=== PATIENT | male | born 1935 | race Caucasian/White ===

== ENCOUNTER → 2017-10-14 | Outpatient (CLI) | payer OTHER ==
[~2017-10-14] MED LIST: ACCUPRIL40 MG; AMLODIPINE BESY10 MG PO; APAP650 PO; ASPIRIN325 PO; BACLOFEN 10MG T10 MG PO; BACTRIM DS TAB1 EAC1 PO; BACTROBAN CREAM30 G1 TOP; BISACODYL10 MG RC; CARVEDILOL25 MG PO; CLARITIN10 MG PO; COLACE 100 MG100 MG PO; CYMBALTA30 MG PO; ENOXAPARIN30 MG/0.1 SUBQ; FLOMAX0.4 MG PO; FOLIC ACID1 MG; FOLIC ACID1 MG PO; HYDROCHLOROTHIA25 M1 PO; HYDROCHLOROTHIA25 M2 PO; HYDROCODONE-APA1 TA1 PO; IRON325 PO; KEFLEX250 MG PO; LASIX 40 MG TAB40 M2 PO; LIDODERM 5%1 PATC1 TRANSDERM; LIORESAL 10 MG10 MG PO; LIPITOR10 MG PO; MOBIC15 MG PO; MULTIVITAMINS1 EAC7 PO; NEPHROCAPS SOFT1 CAP PO; NEURONTIN 300300 M1 PO; NORCO 5-325 TA1 EACH PO; OMEPRAZOLE 20 M20 M1 PO; OMEPRAZOLE20 M2; OMEPRAZOLE20 MG PO; PACERONE 200 M200 M1 PO; PREDNISONE 20 M20 MG PO; PREVACID30 MG PO; PRILOSEC20 MG PO; PROTONIX40 M1 PO; QUINU10 PD PO; SIMVASTATIN20 MG; SIMVASTATIN20 MG PO; SIMVASTATIN40 MG PO; TOPROL XL50 MG PO; TORSEMIDE100 MG PO; TRAMADOL 50 MG50 MG PO; TRIAMCINOLONE A15 G1 TP; TRIAMTERENE-HC1 EAC3; VICODIN 5-5001 EACH PO; VOLTAREN GEL 1100 G2 TOP; ZOCOR20 MG PO; [UNRECOGNIZED DRUG - CODE]
== END ==
LOC: RAD 09:00
DX: T84.51XA Infection and inflammatory reaction due to internal right hip prosthesis, initial encounter (principal); S72.141P Displaced intertrochanteric fracture of right femur, subsequent encounter for closed fracture with malunion; I50.9 Heart failure, unspecified; Z79.82 Long term (current) use of aspirin; Z79.899 Other long term (current) drug therapy; Z79.891 Long term (current) use of opiate analgesic; X58.XXXD Exposure to other specified factors, subsequent encounter; Y83.8 Other surgical procedures as the cause of abnormal reaction of the patient, or of later complication, without mention of misadventure at the time of the procedure

== ENCOUNTER 2017-11-04 05:23 | Inpatient (IN) | payer OTHER ==
[2017-10-22 11:22] LABS: HEMATOCRIT 32.2 % (42.0-52.0); HEMOGLOBIN 10.8 gm/dL (14.0-18.0); MCH 30.7 pg (26.0-34.0); MCHC 33.5 g/dL (28.0-37.0); MCV 91.6 fL (80.0-100.0); RBC 3.51 mil/uL (4.50-6.00); RDW 13.1 % (10.5-14.5); WBC 8.5 thou/uL (4.0-11.0)
[2017-10-22 11:31] LABS: URINE BILIRUBIN NEGATIVE (Negative); URINE BLOOD TRACE (Negative); URINE CLARITY CLEAR; URINE COLOR YELLOW; URINE GLUCOSE-RANDOM* NEGATIVE (Negative); URINE KETONES NEGATIVE (Negative); URINE LEUKOCYTES-REFLEX NEGATIVE (Negative); URINE NITRITE-REFLEX NEGATIVE (Negative); URINE PROTEIN (DIPSTICK) NEGATIVE (Negative); URINE SPECIFIC GRAVITY <= 1.005 (1.005-1.035); URINE UROBILINOGEN 0.2 E.U./dl (0.2-1.0)
[2017-10-22 11:38] LABS: PROTIME 10.4 Seconds (9.3-11.4)
[2017-10-22 11:43] LABS: ALBUMIN 3.6 g/dL (3.4-5.0); CALCIUM 8.7 mg/dL (8.5-10.1); CREATININE 2.7 mg/dL (0.7-1.3); TOTAL BILIRUBIN 0.5 mg/dL (<0.1-1.0); TOTAL PROTEIN 7.6 g/dL (6.4-8.2)
[~2017-11-04] VITALS: Ht 170.2 cm; Wt 74.8 kg
[2017-11-04] VITALS (8 sets, daily range): BP systolic 110–170; BP diastolic 20–74
--- NOTE | ~2017-11-04 | O ---
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 PROCEDURE: 1. Removal of right intertrochanteric hip nail. 2. Right total hip arthroplasty. SURGEON: Adalid Villanueva M.D. CABLE WORKER HELPER: LORI Yanes. INDICATIONS FOR CABLE WORKER HELPER: Throughout the case extensive retraction and manipulation of the hip as well as dislocation and reduction of the hip was required. This was afforded to me by my dietetic assistant. ANESTHESIA: General endotracheal. IMPLANTS: Rao and Nephew size 58 R3 acetabular cup, 3 acetabular screws, a size 14 high offset Synergy press-fit stem with a size 40+0 cobalt chrome head and 2 Accord cerclage cables. ESTIMATED BLOOD LOSS: 150 mL. COMPLICATIONS: None. SPECIMENS: Intraoperative frozen section as well as cultures were taken, and intraoperative frozen section revealed few chronic inflammatory cells with no neutrophils. CONDITION UPON LEAVING OR: Stable. INDICATION FOR PROCEDURE: The patient is an 82-year-old gentleman who about 3 years ago sustained a right intertrochanteric hip fracture. This was treated with a short IM nail. He has had progressive hip pain and screw cut out with nonunion of the intertrochanteric hip fracture. After discussion with he and [facility] [address] [place] [address] OPERATIVE REPORT Name: ZENA LAWS Maxine Room #: 409-P [facility] IN .R.#: [id number] Admission: 11/04/17 Attend Phys: Adalid Villanueva MD Discharge: Date of : 36 Report #: [id number] his family as well as workup for infection was negative, he elected for hardware removal and conversion to a total hip arthroplasty. DESCRIPTION OF PROCEDURE: Risks, benefits, alternatives, complications were discussed in detail with the patient including but not limited to risk of anesthesia, risk of damage to nerves, arteries, blood vessels, risk for infection, bleeding, risk for continued hip pain, leg length discrepancy, instability and need for reoperation. Informed consent was obtained from the patient. Right hip was appropriately marked in the preoperative holding area. IV Ancef was given for preoperative antibiotics. He was brought to the operating room and placed in the supine position on the operating room table. General endotracheal anesthesia was induced without complication. He was then placed in the left lateral decubitus position with the right hip uppermost. Right hip and lower extremity were then prepped and draped in normal sterile fashion. Timeout was performed properly identifying the patient, procedure as well as the instrumentation and implants. All in the operating room were in agreement. A standard posterior approach to the hip was made with a 10 blade through the skin and dissection was taken down the fascia with Bovie and fascia was cleaned off with Richards elevator. Fresh 10 blade was used to make a fascial incision. This was taken proximally and distally with curved King scissor. Charnley retractor was placed and there was extensive scarring on the posterior tissues and this was taken off the posterior aspect of the femur with a Bovie cautery. On entering the joint, there appeared to be normal joint fluid. Cultures of this were taken and synovium was removed for frozen section. After this, attention was turned to removal of the trochanteric nail. The vastus lateralis was split longitudinally with Bovie cautery and the distal screw was identified and removed with a screwdriver. The lag screw was then identified and a screwdriver was placed on this. The set screw was unlocked from above and then the lag screw was removed and the nail itself was removed. After this, the hip was dislocated and a femoral neck cut was made to remove the femoral head. Deep acetabular retractors were placed and the labrum was removed sharply. Pulvinar was removed with Bovie cautery. There was evidence of screw wear on the acetabulum itself and acetabulum was then sequentially reamed up to a size 58, at which point there was excellent bleeding cancellous bone. There was some deficiency of the medial wall of the acetabulum, likely secondary to screw wear and so this was bone grafted. Size 58 R3 acetabular cup was placed and 3 acetabular screws were placed for backup fixation. A polyethylene liner for a size 40 head was placed. Attention was then turned to the femur. This was reamed and upon reaming, there was noted to be some instability of the medial calcar so there did appear to be partial healing of the intertrochanteric hip fracture and it was felt that placement of 2 cables would stabilize this. Two cerclage cables were then placed around the greater trochanter and the preparation of the femur was continued. This was reamed and broached up to a size 14, at which point size 14 broach was stable. This was trialed with a high offset neck and a 40+0 head. Hip was reduced, taken through range of motion, found to be stable, found to have equal leg lengths. Broach was then removed, [place] [id number] OPERATIVE REPORT Name: ZENA LAWS Room #: 409-P [facility] IN ..#: [id number] Admission: 11/04/17 Attend Phys: Adalid Villanueva MD Discharge: Date of : 36 Report #: [id number] and a final size 40 high offset Synergy press fit stem was placed. This was then trialed with a 40+0 head. Hip was reduced, taken through range of motion, found to be stable, found to have near equal leg lengths. This was dislocated again and a final size 40 cobalt chrome +0 head was placed. Hip again was reduced, taken through range of motion, found to be stable, found to have equal leg lengths. The joint was thoroughly irrigated with normal saline. Periarticular injection consisting of morphine, ropivacaine, epinephrine and Toradol was placed around the hip joint. 1 gram of vancomycin was placed deep in the hip joint. The capsule and piriformis were repaired with 0 FiberWire. The vastus lateralis was repaired with 0 Vicryl. The fascia was closed with 0 Vicryl, skin was closed with 2-0 Vicryl, 3-0 Monocryl, Dermabond and a JUAN dressing was applied. The patient tolerated this procedure well and went to the recovery room under care of anesthesia postoperatively. <ELECTRONICALLY SIGNED> By: Adalid Villanueva MD 11/08/17 1646 1333 1409 Adalid Villanueva MD /lee
--- NOTE | ~2017-11-04 | S ---
[facility] [place] [address] SURGICAL PATH RPT PROCEDURE Name: ZENA LAWS Room #: 409-P ADM IN M.R.#: [id number] Admission: 11/04/17 Date of : 36 Discharge: Report #: [id number] Path Case #: [id number] PATHOLOGY REPORT COLLECTION DATE: 11/04/2017 RECEIVED DATE: 11/05/2017 SUBMITTING PHYS: Dr. Adalid Villanueva OTHER PHYS: Dr. Ike Solis SPECIMEN(S) RECEIVED: A.Right hip synovium-FS * * * * * * * * * * * * FINAL DIAGNOSIS: "Right hip synovium", biopsy: - Synovium with reactive changes and no significant acute inflammation (less than 1 neutrophil / hpf). (CLW:; 11/08/2017) PATHOLOGIST: Qing Carey M.D. REPORT ELECTRONICALLY SIGNED BY: Qing Carey M.D. DATE/TIME: 11/08/2017 17:08 * * * * * * * * * * * * GROSS PATHOLOGY: Received fresh and labeled "right hip synovium, and it consists of two pieces of firm, yellow-white tissue which aggregate to 5 x 4 x 1.2 cm. A focal 1 x 1 x 0.5 cm firm, yellow-white calcified area is present in one of the two pieces. The two pieces of soft tissue are sectioned and two phone representative sections are submitted in block A1 for frozen section. Additional phone representative sections of soft tissue are submitted in A2. (SKM:anna; 11/04/2017) FROZEN SECTION DIAGNOSIS: (Yvette Walton M.D.) Synovial tissue with focal chronic inflammation. Less than one neutrophil per average high power field present. Findings relayed to Dr. Villanueva at the time of the procedure. Testing performed [address] [facility] [address], [place] [address] (SKM:anna; 11/04/2017) [place] [address] [place] [address] SURGICAL PATH RPT PROCEDURE Name: VETOZENA Room #: 409-P ADM IN M.R.#: [id number] Admission: 11/04/17 Date of : 36 Discharge: Report #: [id number] Path Case #: [id number] CLINICAL HISTORY: None Provided INITIAL CPT CODE(S): A; 23905, 50718 Professional services performed by [facility] at [place] [address], [place] [address] [facility] at [address] [place] [address], [facility] [address], [place] [address]. [facility] [address] [place] [address] PHONE: [phone] DIRECTOR: Filiberto Christopher M.D. * * * END OF REPORT * * *
[~2017-11-04 05:23] MED LIST changes: -FLOMAX0.4 MG PO; -IRON325 PO; -MOBIC15 MG PO; -NEURONTIN 300300 M1 PO; -PACERONE 200 M200 M1 PO
[2017-11-05 03:38] LABS: HEMATOCRIT 23.1 % (42.0-52.0); HEMOGLOBIN 7.8 gm/dL (14.0-18.0); MCH 30.9 pg (26.0-34.0); MCHC 33.9 g/dL (28.0-37.0); MCV 91.2 fL (80.0-100.0); RBC 2.53 mil/uL (4.50-6.00); RDW 12.9 % (10.5-14.5); WBC 7.2 thou/uL (4.0-11.0)
[2017-11-05 03:40] VITALS: BP 104/54
[2017-11-05 10:17] VITALS: BP 105/35
[2017-11-05 15:59] VITALS: BP 108/51
[2017-11-05 20:46] VITALS: BP 120/93
[2017-11-06 03:39] LABS: HEMOGLOBIN 6.7 gm/dL (14.0-18.0); WBC 11.3 thou/uL (4.0-11.0)
[2017-11-06 03:41] LABS: HEMATOCRIT 20.4 % (42.0-52.0); MCH 30.3 pg (26.0-34.0); MCHC 32.8 g/dL (28.0-37.0); MCV 92.6 fL (80.0-100.0); RBC 2.2 mil/uL (4.50-6.00); RDW 13.5 % (10.5-14.5)
[2017-11-06 05:24] VITALS: BP 91/72
[2017-11-06 08:00] VITALS: BP 116/40
[2017-11-06 16:00] VITALS: BP 114/76
[2017-11-06 20:17] VITALS: BP 110/34
[2017-11-06 20:19] VITALS: BP 120/76
[2017-11-07 04:30] VITALS: BP 114/62
[2017-11-07 05:53] LABS: HEMOGLOBIN 6.6 gm/dL (14.0-18.0); MCH 31.2 pg (26.0-34.0); MCHC 33.8 g/dL (28.0-37.0); MCV 92.4 fL (80.0-100.0); RBC 2.1 mil/uL (4.50-6.00); RDW 13.1 % (10.5-14.5); WBC 9.5 thou/uL (4.0-11.0)
[2017-11-07 05:58] LABS: CALCIUM 7.7 mg/dL (8.5-10.1); CREATININE 3.8 mg/dL (0.7-1.3); POTASSIUM 3.9 mmol/L (3.5-5.1)
[2017-11-07 06:01] LABS: HEMATOCRIT 19.4 % (42.0-52.0)
[2017-11-07 08:00] VITALS: BP 110/43
[2017-11-07 10:24] LABS: HEMATOCRIT 19.8 % (42.0-52.0); HEMOGLOBIN 6.6 gm/dL (14.0-18.0)
[2017-11-07 16:00] VITALS: BP 99/36
[2017-11-07 20:00] VITALS: BP 117/63
[2017-11-07 23:04] VITALS: BP 105/56; BP 105/85
[2017-11-08 04:00] VITALS: BP 112/48
[2017-11-08 08:00] VITALS: BP 132/50
[2017-11-08 10:25] LABS: ABSOLUTE NEUTROPHILS 6.6 thou/uL (1.4-8.2); BASOPHILS 0.4 % (0.0-2.0); EOSINOPHILS 6.8 % (0.0-3.0); HEMATOCRIT 23.3 % (42.0-52.0); HEMOGLOBIN 7.7 gm/dL (14.0-18.0); LYMPHOCYTES 6.2 % (24.0-44.0); MCH 30.4 pg (26.0-34.0); PLATELET COUNT 205 thou/uL (150-400); POLYS 79.6 % (36.0-66.0); RBC 2.53 mil/uL (4.50-6.00); RDW 13.7 % (10.5-14.5); WBC 8.3 thou/uL (4.0-11.0)
[2017-11-08 10:32] LABS: CALCIUM 7.9 mg/dL (8.5-10.1); CREATININE 3.7 mg/dL (0.7-1.3); POTASSIUM 3.9 mmol/L (3.5-5.1)
[2017-11-08 16:00] VITALS: BP 124/48
[2017-11-08 19:29] VITALS: BP 121/52
[2017-11-09 05:35] VITALS: BP 124/57
[2017-11-09 06:49] LABS: HEMATOCRIT 22.4 % (42.0-52.0); HEMOGLOBIN 7.6 gm/dL (14.0-18.0); MCH 30.8 pg (26.0-34.0); MCHC 33.9 g/dL (28.0-37.0); RBC 2.47 mil/uL (4.50-6.00); RDW 13.2 % (10.5-14.5); WBC 7.6 thou/uL (4.0-11.0)
[2017-11-09 06:53] LABS: CALCIUM 8.7 mg/dL (8.5-10.1); CREATININE 3.5 mg/dL (0.7-1.3); POTASSIUM 3.8 mmol/L (3.5-5.1)
[2017-11-09 09:49] VITALS: BP 118/45
[2017-11-09] MEDS ORDERED: NEURONTIN 300300 M1 PO (15:09)
[2017-11-09] MEDS ORDERED: FLOMAX0.4 MG PO (15:09)
[2018-03-07] MEDS ORDERED: NEPHROCAPS SOFT1 CAP PO (07:56)
[2018-03-07] MEDS ORDERED: IRON325 PO (07:57)
[2018-03-07] MEDS ORDERED: FOLIC ACID1 MG PO (07:58)
== END 2017-11-09 15:55 | DRG 470 ==
LOC: TBA 05:23 → 4N 05:23 → PRE 05:29 → 4N 14:54
PROVIDERS: Hospitalist; Nurse Practitioner Family; Orthopaedic Surgery
PROC: 0SR901A Replacement of Right Hip Joint with Metal Synthetic Substitute, Uncemented, Open Approach (ICD-10-PCS; principal; 2017-11-04)
PROC: 0QP604Z Removal of Internal Fixation Device from Right Upper Femur, Open Approach (ICD-10-PCS; principal; 2017-11-04)
DX: M96.0 Pseudarthrosis after fusion or arthrodesis (principal); D62 Acute posthemorrhagic anemia; I13.0 Hypertensive heart and chronic kidney disease with heart failure and stage 1 through stage 4 chronic kidney disease, or unspecified chronic kidney disease; R31.9 Hematuria, unspecified; N40.1 Benign prostatic hyperplasia with lower urinary tract symptoms; R33.8 Other retention of urine; I50.9 Heart failure, unspecified; I25.10 Atherosclerotic heart disease of native coronary artery without angina pectoris; N18.9 Chronic kidney disease, unspecified; E78.5 Hyperlipidemia, unspecified; Y83.8 Other surgical procedures as the cause of abnormal reaction of the patient, or of later complication, without mention of misadventure at the time of the procedure; Z79.899 Other long term (current) drug therapy; Z90.5 Acquired absence of kidney
CPT/HCPCS: 10790; 50010; 50101; 50382; 50414; 50455; 51771; 53000; 53078; 54118; 55389; 56460; 56524; 56527; 56528; 56530; 57095; 62110; 62900; 70005

== ENCOUNTER → 2018-03-07 | Outpatient (CLI) | payer OTHER ==
[~2018-03-07] VITALS: Ht 170.2 cm; Wt 74.4 kg
[~2018-03-07] MED LIST changes: +FLOMAX0.4 MG PO; +IRON325 PO; +NEURONTIN 300300 M1 PO
--- NOTE | ~2018-03-07 | P ---
[facility] [place] [address] PROCEDURE REPORT Name: ZENA LAWS Room #: [facility]#: [id number] Admission: 03/07/18 Attend Phys: Washington Solano MD Discharge: Date of : 36 Report #: [id number] THIS REPORT FOR: //name// CC: Ike Villanueva ICD GENERATOR EXCHANGE. PREOPERATIVE DIAGNOSIS: ICD at BARI. POSTOPERATIVE DIAGNOSIS: ICD at BARI. HISTORY OF PRESENT ILLNESS: The patient is an 82-year-old with history of biventricular ICD implantation, whose device is currently at BARI. He also has a LV lead, which has been turned off due to dislodgement several years ago. He is here for a generator exchange with a change to a dual chamber ICD. ANESTHESIA: The patient underwent MAC anesthesia with no anesthesia related complications. PROCEDURE: The patient underwent informed consent. We discussed the details of the procedure including the risks, which include but not limited to bleeding, infection and need for possible lead revisions. He understood these risks and is willing to proceed. As such, the patient was brought to the EP laboratory in fasting and sedated state and prepped and draped in a sterile fashion. He received IV antibiotics. The incision was injected with lidocaine. An incision was made, pocket was entered. The old device was connected from the leads. The LV lead was capped and placed in the pocket, and the atrial and ventricular leads were tested and found to be functioning normally and connected this to the new dual chamber [employer] ICD. The pocket was closed in 2 layers using 2-0 for the deep layer, 3-0 for the mid layer, with surgical glue placed in the skin layer. The patient awoke neurologically hemodynamically intact. No complications and no significant bleeding. The explanted device was a Medtronic model number [id number], serial number [id number] that was originally implanted on 01/13/2012. The preexisting leads were also implanted at that time. The newly implanted generator was a [employer] model number [id number], serial number [id number]. The atrial lead was a Medtronic model number 5076, serial number [id number]. The RV lead was a Medtronic model number 6947, serial number [id number]. The LV lead was a Medtronic model number 4296, serial number [id number]. This lead was capped. The atrial lead demonstrated a P-wave of 3.2 millivolts, pacing impedance of 430 ohms and the pacing threshold 0.75 volts at 0.5 milliseconds. RV lead demonstrated R-wave of 3.8 millivolts, pacing impedance of 830 ohms and a pacing threshold of 1.5 volts at 0.5 milliseconds. His ICD therapies were programmed back to their original settings. [facility] [address] [place] [address] PROCEDURE REPORT Name: ZENA LAWS Room #: [facility]#: [id number] Admission: 03/07/18 Attend Phys: Washington Solano MD Discharge: Date of : 36 Report #: [id number] CONCLUSIONS: 1. Successful ICD generator exchange. 2. Satisfactory atrial and right ventricular pacing and sensing thresholds. 3. Capped LV lead due to prior dislodgement several years ago. <ELECTRONICALLY SIGNED> By: Washington Solano MD 04/08/18 1535 1031 1517 Washington Solano MD /nt
[2018-03-07 07:22] VITALS: BP 138/74
[2018-03-07 07:52] LABS: ABSOLUTE NEUTROPHILS 3.5 thou/uL (1.4-8.2); BASOPHILS 0.5 % (0.0-2.0); EOSINOPHILS 1.2 % (0.0-3.0); HEMOGLOBIN 9.7 gm/dL (14.0-18.0); MCH 26.8 pg (26.0-34.0); MCHC 32.4 g/dL (28.0-37.0); MCV 82.6 fL (80.0-100.0); PLATELET COUNT 281 thou/uL (150-400); POLYS 61.3 % (36.0-66.0); RBC 3.63 mil/uL (4.50-6.00); RDW 17.9 % (10.5-14.5); WBC 5.7 thou/uL (4.0-11.0)
[2018-03-07 07:58] LABS: CALCIUM 9.2 mg/dL (8.5-10.1); CREATININE 1.7 mg/dL (0.7-1.3); POTASSIUM 3.9 mmol/L (3.5-5.1)
[2018-03-07 08:04] LABS: ALBUMIN 3.6 g/dL (3.4-5.0); TOTAL BILIRUBIN 0.4 mg/dL (<0.1-1.0); TOTAL PROTEIN 7.4 g/dL (6.4-8.2)
[2018-03-07 08:15] LABS: APTT 27.4 Seconds (24.5-32.8); PROTIME 9.7 Seconds (9.3-11.4)
== END | disposition home or self-care (01) ==
LOC: CATH 06:47
PROVIDERS: Internal Medicine Cardiovascular Disease
DX: Z45.02 Encounter for adjustment and management of automatic implantable cardiac defibrillator (principal); I11.0 Hypertensive heart disease with heart failure; I50.9 Heart failure, unspecified; I25.10 Atherosclerotic heart disease of native coronary artery without angina pectoris; I25.2 Old myocardial infarction; I48.91 Unspecified atrial fibrillation; I42.9 Cardiomyopathy, unspecified; N19 Unspecified kidney failure; K21.9 Gastro-esophageal reflux disease without esophagitis; Z79.899 Other long term (current) drug therapy; Z95.5 Presence of coronary angioplasty implant and graft; Z79.82 Long term (current) use of aspirin; Z90.5 Acquired absence of kidney; Z96.641 Presence of right artificial hip joint; Z98.890 Other specified postprocedural states; Z87.891 Personal history of nicotine dependence; Z79.01 Long term (current) use of anticoagulants; Z95.1 Presence of aortocoronary bypass graft
CPT/HCPCS: 62110; 62900; 70005

== ENCOUNTER 2018-08-26 04:02 | Inpatient (IN) | payer OTHER ==
[2018-08-26] VITALS (8 sets, daily range): BP systolic 111–158; BP diastolic 54–93
[~2018-08-26] VITALS: Ht 172.7 cm; Wt 76.6 kg
--- NOTE | ~2018-08-26 | HC ---
[facility] [place] [address] CONSULTATION Name: ZENA LAWS Room #: 216-P [facility] IN ..#: [id number] Admission: 08/26/18 Attend Phys: [facility] Dis[facility]: 08/29/18 Date of : 36 Report #: [id number] THIS REPORT FOR: //name// CC: Iek Solis HISTORY OF PRESENT ILLNESS: The patient is an 83-year-old gentleman with severe ischemic cardiomyopathy, congestive heart failure, dyslipidemia and chronic kidney disease primarily related to a solitary kidney. He has a history of dual chamber pacer defibrillator ([employer]. [employer]). A third lead was attempted, although could not be performed due to his anatomy and capped off. The patient now presents with multiple defibrillator discharges. Review of his [employer] device demonstrates multiple episodes of VT, zone tachycardia at 181 beats per minute. He received multiple therapies including ATP and then subsequent shocks. He reports his defibrillator went off at least 5 times. He presented to the Emergency Department. He denies chest pain, pressure or change in his heart failure symptoms, which include mild exertional breathlessness, occasional orthopnea. His "dry weight is 160 pounds." No history of syncope. MEDICATIONS: Include aspirin, carvedilol 25 mg twice daily, iron one daily, folic acid, gabapentin 300 mg daily, quinapril 10 mg daily, simvastatin 20 mg daily, Flomax 0.4 mg daily, torsemide 100 mg daily. PAST MEDICAL AND SURGICAL HISTORY: Medical records have been reviewed and include history of an ischemic cardiomyopathy, congestive heart failure, coronary disease with prior bypass with post-bypass stenting in 2007, reflux disease, hypertension, nonischemic stress study in 2013. Bypass anatomy is notable for a left internal mammary to the LAD, vein graft to the right coronary, vein graft to the circumflex and vein graft to the diagonal. He underwent nephrectomy in 1989, total hip arthroplasty in 2017, shoulder surgery, knee arthroplasty. SOCIAL HISTORY: He is a former smoker and drinker. FAMILY HISTORY: Notable for premature coronary disease. REVIEW OF SYSTEMS: All systems negative except as that noted above. An echocardiogram performed earlier year demonstrated an ejection fraction of 30%. LABORATORY DATA: Sodium is 130, potassium 4.0, creatinine 1.9. Troponin 0.12. White count 6.9, hemoglobin 11, hematocrit 32, platelet count 294. Chest x-ray is normal except cardiomegaly. EKG, sinus rhythm with first-degree AV block, left bundle-branch block. IMPRESSION: 1. Ventricular tachycardia storm. 2. Moderately severe to severe ischemic cardiomyopathy. 3. Chronic systolic heart failure. [address] [address] CONSULTATION Name: VETOZENA Maxine Room #: 216-P [facility] IN M.R.#: [id number] Admission: 08/26/18 Attend Phys: Ike Solis MD, FAAF Discharge: 08/29/18 Date of : 36 Report #: [id number] 4. Hypertension. 5. Left bundle-branch block. 6. Chronic kidney disease; solitary kidney. 7. History of pacer defibrillator placement ([employer]). RECOMMENDATIONS: 1. Echocardiogram with Doppler. 2. Load with amiodarone intravenous with migration to oral. 3. Thyroid function studies. 4. Continued efforts towards aggressive risk factor modification. <ELECTRONICALLY SIGNED> By: Lizandro De Jesus MD, FACC 09/01/18 0905 0721 2137 Lizandro De Jesus MD, FACC /nt
--- NOTE | ~2018-08-26 | 2DMMODE ---
[facility] [place] [place] [address] [place] [address] 2 D/M-MODE ECHOCARDIOGRAM Name: VETOZENA Maxine Room #: 216-P [facility] IN ..#: [id number] Admission: 08/26/18 Attend Phys: Ike Solis MD, Discharge: Date of : 36 Date of Service: 08/26/18 1235 Report #: [id number] THIS REPORT FOR: //name// APPROVED REPORT Study performed: 08/26/2018 11:56:56 EXAM: Comprehensive 2D, Doppler, and color-flow Echocardiogram Patient Location: Echo lab Room #: 216 Status: routine BSA: 1.86 HR: 60 bpm BP: 111/54 mmHg Rhythm: NSR Other Information Study Quality: Good Indications V-tach. Hx: ICD, NV, ISCM, CABG, stents, Afib, HTN, HLP, Afib. 2D Dimensions RVDd: 43.69 mm IVSd: 12.71 (7-11mm) LVOT Diam: 20.58 (18-24mm) LVDd: 64.05 mm PWd: 11.64 (7-11mm) LVDs: 59.02 (25-40mm) Aortic Root: 34.83 mm Volumes Left Atrial Volume (Systole) Single Plane 4CH: 70.77 mL Single Plane 2CH: 103.52 mL LA ESV Index: 50.00 mL/m2 Aortic Valve AoV Peak Hollis.: 1.54 m/s AO Peak Gr.: 9.49 mmHg LVOT Max P.54 mmHg LVOT Max V: 0.80 m/s SIMA Vmax: 1.72 cm2 Mitral Valve E/A Ratio: 0.8 MV Decel. Time: 136.99 ms MV E Max Hollis.: 0.78 m/s [facility] [place] [place] [address] [place] [address] 2 D/M-MODE ECHOCARDIOGRAM Name: ZENA LAWS Room #: 216-P [facility] IN ..#: [id number] Admission: 08/26/18 Attend Phys: Ike Solis MD, Discharge: Date of : 36 Date of Service: 08/26/18 1235 Report #: [id number] MV A Hollis.: 1.01 m/s MV PHT: 39.73 ms IVRT: 110.73 ms Pulmonary Valve PV Peak Hollis.: 0.97 m/s PV Peak Gr.: 3.77 mmHg Pulmonary Vein P Vein S: 0.39 m/s P Vein A: 0.24 m/s P Vein D: 0.45 m/s P Vein A Dur.: 83.0 msec P Vein S/D Ratio: 0.87 Tricuspid Valve TR Peak Hollis.: 3.20 m/s RAP Estimate: 5.00 mmHg TR Peak Gr.: 40.99 mmHg PA Pressure: 46.00 mmHg Left Ventricle Left ventricle is moderately dilated. Mild concentric left ventricular hypertrophy. Left ventricular systolic function is severely decreased. LVEF is 25%. Global hypokinesis, inferior wall akinesis Mild diastolic dysfunction is present (impaired relaxation pattern). Right Ventricle Right ventricle is mildly dilated. The right ventricular systolic function is normal. Device lead is present in the right ventricle. Atria Left atrium is moderately dilated. Right atrium is mildly dilated. Aortic Valve Aortic valve is mildly calcified. Trace aortic regurgitation. There is no aortic valvular stenosis. Mitral Valve Mild mitral annular calcification. Moderate mitral regurgitation. Tricuspid Valve The tricuspid valve is normal in structure. Mild to moderate tricuspid regurgitation. Estimated PAP is 45-50mmHg. Pulmonic Valve The pulmonary valve is normal in structure. Mild pulmonic [address] [address] 2 D/M-MODE ECHOCARDIOGRAM Name: ZENA LAWS Maxine Room #: 216-P [facility] IN ..#: [id number] Admission: 08/26/18 Attend Phys: Ike Solis MD, Discharge: Date of : 36 Date of Service: 08/26/18 1235 Report #: [id number] regurgitation. Great Vessels The aortic root is normal in size. Ascending aorta is not well visualized. IVC is normal in size and collapses >50% with inspiration. Pericardium There is no pericardial effusion. <Conclusion> Left ventricular systolic function is severely decreased. LVEF is 25%. Global hypokinesis, inferior wall akinesis Mild diastolic dysfunction Left atrium is moderately dilated. Aortic valve is mildly calcified. Trace aortic regurgitation, no stenosis. Mild mitral annular calcification. Moderate mitral regurgitation. Mild to moderate tricuspid regurgitation. Estimated pulmonary artery pressure of 45-50mmHg. There is no pericardial effusion. <ELECTRONICALLY SIGNED> By: Lizandro De Jesus MD, FACC 08/26/18 1235 1235 1235 Lizandro De Jesus MD, FACC /INF
--- NOTE | ~2018-08-26 | H ---
[facility] [address] [address] HISTORY AND PHYSICAL Name: ZENA LAWS Room #: 216-P [facility] IN M.R.#: [id number] Admission: 08/26/18 Attend Phys: Ike Solis MD, [facility] Discharge: 08/29/18 Date of : 36 Report #: [id number] THIS REPORT FOR: //name// CC: Lizandro De Jesus MD [facility] Ike Solis DATE OF SERVICE: 08/26/2018 CHIEF COMPLAINT: Defibrillator discharge. HISTORY OF PRESENT ILLNESS: The patient is an 83-year-old white male, well known to me. He has an implanted pacer defibrillator. It went off twice yesterday, three times today. He was evaluated in the Emergency Department. The Cardiology group that cares for him interrogated his pacemaker and it appears that these firings correlate with episodic ventricular tachycardia. He is hospitalized, placed on Telemetry Unit and started on IV amiodarone by Dr. Lizandro De Jesus. He was unaware of any tachycardia reduced rhythmic problems at the time of these firings. Some did happen very early this morning and awoke him from sleep. PAST MEDICAL HISTORY: Ischemic cardiomyopathy, chronic systolic heart failure, nephrectomy for renal cyst, has chronic kidney disease with a solitary kidney, coronary artery disease, CABG in the distant past, hypertension, dyslipidemia, pacemaker defibrillator and hip fracture and repair in November of this year with Dr. Villanueva. He underwent right intertrochanteric hip screw removal and right total hip arthroplasty. He has had right arm cellulitis versus gout, history of AFib, left bundle branch block, right tib-fib fracture in 1984, total knee arthroplasty in 2009, shoulder surgery, myocardial infarction, cardiac stents and iron-deficiency anemia. MEDICATIONS: Carvedilol 25 mg 1 p.o. b.i.d., aspirin 325 mg p.o. daily, Accupril 10 mg p.o. at bedtime, simvastatin 20 mg p.o. at bedtime, omeprazole 40 mg p.o. b.i.d., B complex, folic acid, Nephrocaps Softgel 1 p.o. daily, ferrous sulfate 325 mg p.o. daily, folic acid 1 mg p.o. daily and torsemide 100 mg p.o. daily. ALLERGIES: No known drug allergies. FAMILY HISTORY: Son is insulin-requiring diabetic. SOCIAL HISTORY: He is a , nonsmoker, lives in [facility], has family in [place] and [place]. REVIEW OF SYSTEMS: GENERAL: No fever, chills, nausea, vomiting or diarrhea. EYES: No visual changes. [facility] [address] [place] [address] HISTORY AND PHYSICAL Name: ZENA LAWS Maxine Room #: 216-P [facility] IN ..#: [id number] Admission: 08/26/18 Attend Phys: Ike Solis MD, FAAF Discharge: 08/29/18 Date of : 36 Report #: [id number] ENT: No problems with hearing, swallow, taste or smell. CARDIOVASCULAR: No chest pain or palpitations. He has had five defibrillator discharges in the last 24 hours. RESPIRATORY: No difficulty breathing. GASTROINTESTINAL: No abdominal pain. GENITOURINARY: No problems urinating. MUSCULOSKELETAL: No muscle or joint pain. NEUROLOGIC: No paresis, paralysis or paresthesias. PSYCHIATRIC: No disturbing thoughts. Remainder of system review is negative. PHYSICAL EXAMINATION: VITAL SIGNS: Temperature 36.8, pulse 76, respirations 11, blood pressure 144/79 and pulse ox on room air is 98%. He weighs 77.11 kilograms or 170 pounds. GENERAL: He is in no acute distress, talkative. HEENT: Pupils equal, round and reactive to light and accommodation. Extraocular muscles intact. Pharynx is unremarkable. NECK: Supple. COR: S1, S2. CHEST: Clear. ABDOMEN: Soft, nontender. EXTREMITIES: No edema. NEUROLOGIC: He is intact, without focal deficit. LABORATORY DATA: CBC: White count 6.9, hemoglobin 11.1, hematocrit 32.9 and platelets 294,000. Serum chemistry: Sodium 130, potassium 4.0, chloride 94, CO2 of 27, BUN 71, creatinine 1.9, estimated glomerular filtration rate is 34, glucose 110 and calcium is 8.8. Magnesium 1.2. Troponin 0.12. TSH 1.848. Protime 10.2, INR 1.0 and APTT 27.0. ASSESSMENT: Defibrillator discharge, ventricular tachycardia, cardiomyopathy, chronic renal insufficiency, single kidney following nephrectomy for cysts and hypomagnesemia. PLAN: Admit to the hospital. Replace magnesium. Now receiving amiodarone IV. Cardiology consult working. <ELECTRONICALLY SIGNED> By: Ike Solis MD, FAAFP, FACEP 09/12/18 1258 2357 0136 Ike Solis MD, FAAFP, FACEP /nt
--- NOTE | ~2018-08-26 | EKG ---
[place] [address] [facility] [place] [address] ELECTROCARDIOGRAM REPORT Name: ZENA LAWS Room #: 216-P ADM IN M.R.#: [id number] Admission: 08/26/18 Attend Phys: Ike Solis MD, FAAF Discharge: Date of : 37 Report #: [id number] THIS REPORT FOR: //name// [facility] ED Test Date: 2018-08-26 Test Time: 04:31:47 Pat Name: ZENA LAWS Department: Room: 216 Gender: M Diagnostic Cardiac Sonographer: patricio : 1935 Requested By: Sienna Gonsalves Order Number: [id number] MD: Lizandro De Jesus Measurements Intervals [place] Rate: 66 P: 62 MS: 258 QRS: -9 QRSD: 193 T: 219 QT: 483 QTc: 507 Interpretive Statements Sinus rhythm Multiple ventricular premature complexes Prolonged MS interval Left bundle branch block Compared to ECG 05/13/2016 08:21:03 Ventricular premature complex(es) now present Electronically Signed On 08-26-2018 17:13:22 CDT by Lizandro De Jesus [email or web address] <ELECTRONICALLY SIGNED> By: Lizandro De Jesus MD, [facility] 08/26/18 1713 0431 0431 Lizandro De Jesus MD, [facility] /EPI
[2018-08-26] MEDS ORDERED: MOBIC15 MG PO (04:32)
[2018-08-26 05:25] LABS: HEMATOCRIT 32.9 % (42.0-52.0); HEMOGLOBIN 11.1 gm/dL (14.0-18.0); MCH 30.8 pg (26.0-34.0); MCHC 33.8 g/dL (28.0-37.0); MCV 91.1 fL (80.0-100.0); RBC 3.61 mil/uL (4.50-6.00); RDW 13.1 % (10.5-14.5); WBC 6.9 thou/uL (4.0-11.0)
[2018-08-26 05:32] LABS: CALCIUM 8.8 mg/dL (8.5-10.1); CREATININE 1.9 mg/dL (0.7-1.3)
[2018-08-26 05:42] LABS: MAGNESIUM 1.2 mg/dL (1.8-2.4); PROTIME 10.2 Seconds (9.3-11.4); TROPONIN-I 0.12 ng/mL (<0.06)
[2018-08-27 03:55] VITALS: BP 149/76
[2018-08-27 07:59] VITALS: BP 128/77
[2018-08-27 08:01] LABS: HEMATOCRIT 35.5 % (42.0-52.0); HEMOGLOBIN 12.1 gm/dL (14.0-18.0); MCV 91.2 fL (80.0-100.0); RBC 3.89 mil/uL (4.50-6.00); RDW 13.4 % (10.5-14.5); WBC 8.3 thou/uL (4.0-11.0)
[2018-08-27 08:17] LABS: CALCIUM 9.2 mg/dL (8.5-10.1); CREATININE 1.9 mg/dL (0.7-1.3); MAGNESIUM 1.7 mg/dL (1.8-2.4)
[2018-08-27 12:07] VITALS: BP 121/66
[2018-08-27 16:01] VITALS: BP 119/67
[2018-08-27 19:55] VITALS: BP 130/68
[2018-08-28 05:04] VITALS: BP 143/74
[2018-08-28 05:32] LABS: ABSOLUTE NEUTROPHILS 4.8 thou/uL (1.4-8.2); BASOPHILS 0.3 % (0.0-2.0); EOSINOPHILS 2.5 % (0.0-3.0); HEMATOCRIT 35.2 % (42.0-52.0); HEMOGLOBIN 11.9 gm/dL (14.0-18.0); LYMPHOCYTES 21.6 % (24.0-44.0); MCH 30.8 pg (26.0-34.0); MCHC 33.9 g/dL (28.0-37.0); MCV 90.9 fL (80.0-100.0); MONOCYTES 8.4 % (1.0-8.0); PLATELET COUNT 282 thou/uL (150-400); POLYS 67.2 % (36.0-66.0); RBC 3.87 mil/uL (4.50-6.00); RDW 13.3 % (10.5-14.5); WBC 7.1 thou/uL (4.0-11.0)
[2018-08-28 05:33] LABS: CALCIUM 8.9 mg/dL (8.5-10.1); CREATININE 2.3 mg/dL (0.7-1.3); POTASSIUM 3.6 mmol/L (3.5-5.1)
[2018-08-28 07:37] VITALS: BP 152/83
[2018-08-28 08:32] LABS: % SATURATION 11 % (20-39); IRON 26 ug/dL (65-175); TIBC 246 ug/dL (250-450)
[2018-08-28 11:59] VITALS: BP 134/73
[2018-08-28 16:15] VITALS: BP 123/68
[2018-08-28 19:29] VITALS: BP 129/75
[2018-08-29 04:18] VITALS: BP 144/63
[2018-08-29 04:20] LABS: ABSOLUTE NEUTROPHILS 6.6 thou/uL (1.4-8.2); BASOPHILS 0.2 % (0.0-2.0); EOSINOPHILS 2.4 % (0.0-3.0); HEMATOCRIT 32.9 % (42.0-52.0); HEMOGLOBIN 11.2 gm/dL (14.0-18.0); LYMPHOCYTES 12.5 % (24.0-44.0); MCH 30.9 pg (26.0-34.0); MCHC 34.1 g/dL (28.0-37.0); MCV 90.6 fL (80.0-100.0); MONOCYTES 8.2 % (1.0-8.0); PLATELET COUNT 268 thou/uL (150-400); POLYS 76.7 % (36.0-66.0); RBC 3.63 mil/uL (4.50-6.00); RDW 13.6 % (10.5-14.5); WBC 8.7 thou/uL (4.0-11.0)
[2018-08-29 04:31] LABS: CALCIUM 9.1 mg/dL (8.5-10.1); CREATININE 2.2 mg/dL (0.7-1.3); MAGNESIUM 2.3 mg/dL (1.8-2.4); POTASSIUM 3.9 mmol/L (3.5-5.1)
[2018-08-29] MEDS ORDERED: PACERONE 200 M200 M1 PO (07:39)
[2018-08-29 07:45] VITALS: BP 146/66
[2018-08-29 10:38] VITALS: BP 147/68
[2018-08-29 13:25] VITALS: BP 147/68
== END 2018-08-29 13:54 | disposition home or self-care (01) | DRG 309 ==
LOC: ER 04:02 → EROBS 05:51 → 2N 05:51 → ENTRNSPT 08-29 13:41 → EDTRNSPTSTS 08-29 13:49 → 2N 08-29 13:54
PROVIDERS: Emergency Medicine; Internal Medicine
DX: I47.2 Ventricular tachycardia (principal); I50.22 Chronic systolic (congestive) heart failure; I12.9 Hypertensive chronic kidney disease with stage 1 through stage 4 chronic kidney disease, or unspecified chronic kidney disease; I25.5 Ischemic cardiomyopathy; I25.10 Atherosclerotic heart disease of native coronary artery without angina pectoris; K21.9 Gastro-esophageal reflux disease without esophagitis; I48.91 Unspecified atrial fibrillation; E78.5 Hyperlipidemia, unspecified; Z96.641 Presence of right artificial hip joint; Z96.659 Presence of unspecified artificial knee joint; M10.9 Gout, unspecified; N18.9 Chronic kidney disease, unspecified; I44.7 Left bundle-branch block, unspecified; E83.42 Hypomagnesemia; D64.9 Anemia, unspecified; Z95.828 Presence of other vascular implants and grafts; Z95.1 Presence of aortocoronary bypass graft; Z95.5 Presence of coronary angioplasty implant and graft; Z87.81 Personal history of (healed) traumatic fracture; Z83.3 Family history of diabetes mellitus; Z90.5 Acquired absence of kidney; I25.2 Old myocardial infarction; Z87.891 Personal history of nicotine dependence; Z82.49 Family history of ischemic heart disease and other diseases of the circulatory system; Z79.899 Other long term (current) drug therapy
CPT/HCPCS: 10081

== ENCOUNTER 2019-03-28 23:52 | Inpatient (IN) | payer OTHER ==
[~2019-03-28] VITALS: Ht 170.2 cm; Wt 85.0 kg
--- NOTE | ~2019-03-28 | HC ---
[facility] [place] [address] CONSULTATION Name: ZENA LAWS Room #: 353-P [facility] IN .R.#: [id number] Admission: 03/29/19 ������������������ Attend Phys: Ike Solis MD, FAAF Discharge: ������������������ Date of : 36 Report #: [id number] THIS REPORT FOR: //name// CC: Ike Solis DATE OF SERVICE: 04/06/2019 REASON FOR CONSULTATION: Hand swelling. HISTORY OF PRESENT ILLNESS: The patient is an 83-year-old male who does not give me a good history. His granddaughter is at his bedside. She reports increasing pain, swelling and redness over both of his hands during this hospitalization. She reports a history of gout and similar symptoms and appearance in the past in the hands. He has been on antibiotics. REVIEW OF SYSTEMS: MUSCULOSKELETAL: See HPI. They report that his lower extremity symptoms appear to be resolved. NEUROLOGIC: Denies numbness or tingling in the extremities. PAST MEDICAL HISTORY: Is obtained partially from the patient's granddaughter and partially from the chart, which include renal insufficiency, peripheral vascular disease, ischemic cardiomyopathy, coronary artery disease, atrial fibrillation, gastroesophageal reflux disease and hypertension. PAST SURGICAL HISTORY: Total knee arthroplasty, total hip, nephrectomy, fixation of right tib-fib fracture in 1984. SOCIAL HISTORY: He is retired, lives with his son in [place]. Denies smoking or drinking alcohol. ALLERGIES: No known drug allergies. MEDICATIONS: The MAR was reviewed, which shows ipratropium/albuterol, amiodarone, magnesium oxide, lorazepam, piperacillin and tazobactam, iron sucrose, pantoprazole, Tylenol, folic acid, atorvastatin, carvedilol, tamsulosin, gabapentin and aspirin. LABORATORY DATA: Done on 04/06/2019 show white blood cell count 13.9, hemoglobin 8.6, hematocrit 26.4, platelet count 308. Chemistry shows creatinine is elevated at 4.4. Uric acid level done this morning was high at 12.8. PHYSICAL EXAMINATION: GENERAL: The patient is awake and alert. His granddaughter is at his bedside. He answers questions sporadically. He is a well-developed, well-nourished male, in no acute distress. [address] [address] CONSULTATION Name: ZENA LAWS Room #: 353-P [facility] IN ..#: [id number] Admission: 03/29/19 ������������������ Attend Phys: Ike Solis MD, FAAF Discharge: ������������������ Date of : 37 Report #: [id number] VITAL SIGNS: Most recent vital signs show a heart rate of 61, blood pressure of 112/41, temperature of 37.2. EXTREMITIES: Examination of his right upper extremity, he has diffuse edema to the digits. Skin is clean, dry and intact. He has edema with erythema centered over the long finger MP joint. He is neurovascularly intact. Skin is otherwise clean, dry and intact. He has tenderness localized to the long finger MP joint. There is no other focal tenderness in the entire right upper extremity including the clavicle, shoulder, arm, elbow, forearm, wrist and hand. He moves those joints without pain. Left upper extremity exam: Skin is clean, dry and intact. He has focal swelling with some erythema at the index MP joint. There is tenderness at this level as well. There is no other tenderness throughout the entire left upper extremity. He moves all the other joints well without significant pain and there is diffuse edema in the hand on the left. Right lower extremity exam: Sensation is intact to light touch. He has gross motor and sensory intact. He has no significant knee joint effusion. There is no pain with range of motion on the right lower extremity joints. Left lower extremity exam: There is evidence of prior surgical incision what appears to be a total knee arthroplasty on the left with a moderate joint effusion. No erythema, no tenderness, no pain with range of motion of left hip, knee, ankle or foot. IMPRESSION AND PLAN: Most likely gout, predominantly in the right long finger metacarpophalangeal joint and left index finger metacarpophalangeal joint. His serum uric acid level is elevated and the granddaughter gives a history with similar findings in the past attributed to gout. I will order an x-ray of both the hands and recommend he be treated for gout medically. If there is a recommendation to undergo joint aspiration, that should be done by radiology under fluoroscopy guidance. Questions were encouraged and answered to the best of my ability. Thank you much for allowing me to participate in the care of this patient. ��������������������������������������������� ���������������������������������������� By: ��������������������������������������������� 1330 0323 Cami Chacon MD /nt
[~2019-03-28 23:52] MED LIST changes: +MOBIC15 MG PO; +PACERONE 200 M200 M1 PO
[2019-03-28 23:53] VITALS: BP 131/56
[2019-03-29 00:22] LABS: ABSOLUTE NEUTROPHILS 14.4 thou/uL (1.4-8.2); BASOPHILS 0.3 % (0.0-2.0); EOSINOPHILS 0.3 % (0.0-3.0); HEMATOCRIT 33.9 % (42.0-52.0); HEMOGLOBIN 11.3 gm/dL (14.0-18.0); LYMPHOCYTES 1.9 % (24.0-44.0); MCH 30.5 pg (26.0-34.0); MCHC 33.3 g/dL (28.0-37.0); MCV 91.3 fL (80.0-100.0); MONOCYTES 5.6 % (1.0-8.0); PLATELET COUNT 237 thou/uL (150-400); POLYS 91.9 % (36.0-66.0); RBC 3.71 mil/uL (4.50-6.00); RDW 13.6 % (10.5-14.5); WBC 15.7 thou/uL (4.0-11.0)
[2019-03-29 00:30] LABS: ANION GAP 12 mmol/L (7-16); BUN 54 mg/dL (7-18); CALCIUM 8.8 mg/dL (8.5-10.1); CHLORIDE 95 mmol/L (98-107); CO2 24 mmol/L (21-32); GLUCOSE 91 mg/dL (74-106); POTASSIUM 4.2 mmol/L (3.5-5.1); SODIUM 131 mmol/L (136-145)
[2019-03-29 00:40] LABS: ALBUMIN 3.4 g/dL (3.4-5.0); SGOT 41 U/L (15-37); SGPT 58 U/L (30-65); TOTAL BILIRUBIN 0.7 mg/dL (<0.1-1.0); TROPONIN-I <0.06 ng/mL (<0.06)
[2019-03-29 00:53] LABS: URINE BILIRUBIN NEGATIVE (Negative); URINE BLOOD 1+ (Negative); URINE CLARITY CLEAR; URINE COLOR YELLOW; URINE GLUCOSE-RANDOM* NEGATIVE (Negative); URINE KETONES NEGATIVE (Negative); URINE NITRITE-REFLEX NEGATIVE (Negative); URINE PROTEIN (DIPSTICK) NEGATIVE (Negative); URINE SPECIFIC GRAVITY <= 1.005 (1.005-1.035); URINE UROBILINOGEN 0.2 E.U./dl (0.2-1.0)
[2019-03-29 00:55] LABS: URINE LEUKOCYTES-REFLEX 1+ (Negative)
[2019-03-29 01:08] LABS: BACTERIA-REFLEX 1-9 Few /HPF (None Seen); CASTS None Seen /LPF (None Seen); CRYSTALS None Seen /LPF (None Seen); SQUAMOUS 0-3 Few /LPF (0-3); URINE RBC 3-10 Few /HPF (0-2); URINE WBC-REFLEX 6-15 Few /HPF (0-5)
[2019-03-29 04:06] VITALS: BP 116/44
--- NOTE | 2019-03-29 05:15 | NUR ---
PT ARRIVED FROM ED 0420. ASSESSMENT COMPLETE. ADMISSION COMPLETE. EDUCATION PROVIDED. PT RESTING COMFORTABLY IN BED. PT DENIES PAIN, DENIES N/V. PT CALL LIGHT WITHIN REACH, WILL CONTINUE POC UNITL EOS.
[2019-03-29 05:55] VITALS: BP 122/53
[2019-03-29 07:30] VITALS: BP 96/54
[2019-03-29 08:04] VITALS: BP 127/47
--- NOTE | 2019-03-29 08:16 | EKG ---
[address] [address] ELECTROCARDIOGRAM REPORT Name: ZENA LAWS Maxine Room #: 430-P ADM IN M.R.#: [id number] ������������������ Admission: 03/29/19 ������������������ Attend Phys: Ike Solis MD, FAAF Discharge: ������������������ Date of : 36 Report #: [id number] ����������������������������������������������������������������� [id number] THIS REPORT FOR: //name// [facility] ED Test Date: 2019-03-29 Test Time: 00:16:32 Pat Name: ZENA LAWS Department: Room: 430 Gender: M Steam Room Attendant: emily : 1935 Requested By: Nikkie Araiza Order Number: [id number] MD: Washington Solano Measurements Intervals [place] Rate: 66 P: -6 VT: 167 QRS: 92 QRSD: 232 T: 171 QT: 440 QTc: 461 Interpretive Statements Sinus rhythm LBBB Multiple premature complexes, vent & supraven Biatrial enlargement Nonspecific intraventricular conduction delay ST changes similar to prior Baseline wander in lead(s) V1,V2,V4 Electronically Signed On 03-29-2019 8:16:25 CDT by Washington Solano [email or web address] ��������������������������������������������� <ELECTRONICALLY SIGNED> ���������������������������������������� By: Washington Solano MD ��������������������������������������������� 03/29/19 0816 0016 0016 Washington Solano MD /EPI
--- NOTE | 2019-03-29 12:14 | NUR ---
ASSESSMENT-PT LIVES AT HOME AND HIS SON RAMIRO LIVES WITH HIM. PT HAS 3 DTRS IN THE AREA WELL. PT WALKS ON HIS OWN AND DOES HIS OWN ADLS. PT HAS A WALKER AND A CANE AT HOME IF NEEDED. LAUNDRY IS LOCATED IN THE BASEMENT AND SON DOES THIS. THEY SHARE THE COOKING AND CLEANING. PT DRIVES. PT SAYS HE HAS HAD HH SERVICES IN THE PAST BUT DOES NOT REMEMBER THE NAME OF THE AGENCY. FOLLOWING TO ASSIST WITH DC PLANNING.
--- NOTE | 2019-03-29 13:03 | NUR ---
ASSUMED CARE AT 0700, SHIFT ASSESSMENT DONE, MEDS GIVEN. VSS. DR KNIGHT WAS NOTIFIED. BILATERAL LOWER EXTREMITY CELLULITIS AND BILATERAL GROIN REDNESS NOTED. WOUND CARE CONSULTED. WILL CONTINUE TO ASSESS AND ASSIST WITH ADLs NEEDED.
--- NOTE | 2019-03-29 15:20 | NUR ---
WOUND CONSULT; INITAL CONSULT TODAY. CELLULITIS PER CHART. MILD EDEMA ERYTHMA. NO DRAINAGE NOTED TODAY. THIS PATIENT IS ON ANTIBIOTICS. RECOMMENDATION; NO NEED TO FOLLOW. NO WOUNDS PRESENT AT THIS TIME. WOUND CARE WILL SIGN OFF AT THIS TIME. RECONSULT IF NEEDED. DISCUSSED WITH EMIL
[2019-03-29 16:26] VITALS: BP 131/71
[2019-03-29 19:40] VITALS: BP 123/49
[2019-03-30 04:11] VITALS: BP 133/65
--- NOTE | 2019-03-30 04:41 | NUR ---
Assumed pt care at 1900.A/Ox3,able to make needs known. Denies pain on assessment.VSS.Up with AX1/RW and GB.Incont/contintent of bladder,using the urinal at times. Edema on BLE,extremities elevated when in bed.Bed alarm on,call light/personal items within reach. Resting quietly with no distress noted,will continue to monitor pt.
[2019-03-30 05:41] LABS: ABSOLUTE NEUTROPHILS 6.2 thou/uL (1.4-8.2); BASOPHILS 0.5 % (0.0-2.0); EOSINOPHILS 2.3 % (0.0-3.0); HEMATOCRIT 32.2 % (42.0-52.0); HEMOGLOBIN 10.8 gm/dL (14.0-18.0); LYMPHOCYTES 8.4 % (24.0-44.0); MCH 30.6 pg (26.0-34.0); MCHC 33.4 g/dL (28.0-37.0); MCV 91.8 fL (80.0-100.0); MONOCYTES 9.6 % (1.0-8.0); PLATELET COUNT 198 thou/uL (150-400); POLYS 79.2 % (36.0-66.0); RBC 3.51 mil/uL (4.50-6.00); RDW 13.5 % (10.5-14.5); WBC 7.8 thou/uL (4.0-11.0)
[2019-03-30 05:59] LABS: CALCIUM 8.8 mg/dL (8.5-10.1); CREATININE 1.8 mg/dL (0.7-1.3); POTASSIUM 3.3 mmol/L (3.5-5.1)
[2019-03-30 08:00] VITALS: BP 142/60
--- NOTE | 2019-03-30 08:00 | NUR ---
PT LYING IN BED THIS AM PT RESTING WITH EYES CLOSED. NOTICED TREMORS TO HANDS. PT LUNGS CLEAR AND ON ROOM AIR.
--- NOTE | 2019-03-30 08:20 | NUR ---
GOT PT OUT OF BED TO CHAIR. PT VERY SLOW MOVING FROM BED TO CHAIR. PT VOIDED IN URINAL PRIOR TO GETTING UP TO CHAIR, CLEAR YELLOW URINE. PT LOWER EXT RED IN COLOR. NOTICED WHEN PT EATING BREAKFAST HE WAS COUGHING. LAST BM 03/29.
--- NOTE | 2019-03-30 10:00 | NUR ---
DAUGHTER HERE TO VISIT. TOLD HER THAT HE COUGHS WITH EATING, SHE STATED THAT SHE HAS REFLUX ALSO. ALSO PT TOLD DAUGHTER THAT HIS FEET HURT THIS AM WHEN GETTING UP IN CHAIR.
--- NOTE | 2019-03-30 15:28 | NUR ---
PT WORKED WITH PHYSICAL THERAPY, PT CARLO, ABLE TO WALK TO BATHROOM AND BACK TO BED.
--- NOTE | 2019-03-30 16:18 | NUR ---
S/W PT AND DTR IN ROOM TO CONFIRM ASSESSMENT INFO GATHERED YESTERDAY. PT HAS A FWW THAT HE USES IF HE IS HAVING A BAD DAY AT HOME. WILL ASK ROMÁN GUERIN TO EVAL PT FOR HOME SAFETY. FOLLOWING. CASE DISCUSSED WITH NURSING.
--- NOTE | 2019-03-30 17:00 | NUR ---
PT ATE DINNER IN BED. STILL HAS SOME SHAKING TO EXT. PT LOWER LEGS ARE RED AND WARM TO TOUCH, FLAKEY SKIN.
[2019-03-30 17:07] VITALS: BP 124/86
[2019-03-30 20:21] VITALS: BP 137/51
[2019-03-30 22:00] VITALS: BP 125/76
[2019-03-31 04:01] VITALS: BP 113/38
--- NOTE | 2019-03-31 06:47 | NUR ---
Alert and oriented to person, place. Patient had fever during the night, Doctor Will was notified, Tylenol given and fever resolved. New blood culture drawn. Got up to chair this morning.
[2019-03-31 08:25] VITALS: BP 118/55
--- NOTE | 2019-03-31 11:48 | NUR ---
Assumed pt care at 7am.Assessment completed.vss but low heart rate noted. Assisted pt with tray setup at breakfast.Fair appetite noted.Pt dtr here this am and wanted Dr De Jesus notified about pt admission to [facility].Mansi duvall licensed sales assistant notified and said pt has no golf course assistant consult but Dr De Jesus will stop by to say hi.Pt in chair with chair alarm on. Family in room visiting.No verbal c/o at present.Will continue to monitor.
[2019-03-31 16:11] VITALS: BP 118/55
[2019-03-31 17:25] VITALS: BP 118/80
[2019-03-31 20:25] VITALS: BP 136/65
--- NOTE | 2019-04-01 04:22 | NUR ---
PATIENT ALERT AND ORIENTED X4. TRANSFERRED FROM CHAIR TO BED WITH TWO ASSIST. TREMORS NOTED. NEPHEW AT BEDSIDE A LITTLE AFTER VISITING HOURS TO PATIENTS ENJOYMENT. THIS NURSE WRAPPED RIGHT ELBOW WITH GUAZE PER ORDERS GIVEN TO AM NURSE. DENIES PAIN. COOPERATIVE WITH CARE. SWALLOWING PILLS WHOLE WHEN GIVEN ONE AT A TIME. USING URINAL WITH YESSY URINE. RESTING THROUGHOUT THE NIGHT. WILL MONITOR.
[2019-04-01 04:28] LABS: ABSOLUTE NEUTROPHILS 11.2 thou/uL (1.4-8.2); BASOPHILS 0.1 % (0.0-2.0); EOSINOPHILS 0.1 % (0.0-3.0); HEMATOCRIT 29.9 % (42.0-52.0); HEMOGLOBIN 9.9 gm/dL (14.0-18.0); LYMPHOCYTES 6.6 % (24.0-44.0); MCH 30.3 pg (26.0-34.0); MCHC 32.9 g/dL (28.0-37.0); MCV 92.1 fL (80.0-100.0); MONOCYTES 10.4 % (1.0-8.0); PLATELET COUNT 194 thou/uL (150-400); POLYS 82.8 % (36.0-66.0); RBC 3.25 mil/uL (4.50-6.00); RDW 13.3 % (10.5-14.5); WBC 13.5 thou/uL (4.0-11.0)
[2019-04-01 04:29] LABS: CALCIUM 8.8 mg/dL (8.5-10.1); POTASSIUM 3.6 mmol/L (3.5-5.1)
--- NOTE | 2019-04-01 04:32 | NUR ---
PATIENT HAD FEVER AND WAS GIVEN PRN TYLENOL WITH GOOD RESULTS OF TEMP 98.4. WILL MONITOR.
[2019-04-01 04:40] VITALS: BP 148/60
[2019-04-01 04:43] LABS: CREATININE 2.9 mg/dL (0.7-1.3)
[2019-04-01 07:48] VITALS: BP 117/47
--- NOTE | 2019-04-01 12:16 | NUR ---
ASSUMED CARE OF PT AT 0700. ASSESSMENT CHARTED. ALERT TO PERSON, PLACE, AND SITUATION. TREMORS NOTED. DAUGHTER MENTIONED HE DRINKS DAILY AT HOME AND DIDN'T KNOW IF THAT COULD BE CAUSING THE TREMORS WHEN HE IS IN THE HOSPITAL. DR. KNIGHT NOTIFIED ABOUT POTENTIAL ALCOHOL WITHDRAWL, NEW MED ORDERS. WILL GIVE ORDERED. PT COUGHING DURING BREAKFAST, SPEECH EVAL ORDERED. FAMILY AT BEDSIDE THIS AFTERNOON. WILL CONTINUE TO MONITOR.
[2019-04-01 16:24] VITALS: BP 117/62
[2019-04-01 19:57] VITALS: BP 96/56
[2019-04-02 04:20] VITALS: BP 145/109
--- NOTE | 2019-04-02 04:32 | NUR ---
PATIENT ALERT AND ORIENTED X4. UP IN CHAIR AT CHANGE OF SHIFT AND REQUESTED TO REMAIN THERE UNTIL LATE. RETURNED TO BED WITH TWO ASSIST AT APPROX. 2200. TAKING MEDICATION WHOLE WITH APPLESAUCE W/O COMPLICATION. THIS NURSE HELD BLOOD PRESSURE MEDICATION EARLY IN SHIFT, HOWEVER, AT APPROX. 0345 PRESSURE WAS ELEVATED AND THE HELD MEDICATION WAS GIVEN. WILL MONITOR. GIVEN ATIVAN TO ASSIST WITH TREMORS, HOWEVER, THEY ARE STILL NOTED.
[2019-04-02 05:13] LABS: ABSOLUTE NEUTROPHILS 12.9 thou/uL (1.4-8.2); BASOPHILS 0.2 % (0.0-2.0); EOSINOPHILS 0.1 % (0.0-3.0); HEMATOCRIT 28.9 % (42.0-52.0); HEMOGLOBIN 9.7 gm/dL (14.0-18.0); LYMPHOCYTES 2.5 % (24.0-44.0); MCH 30.8 pg (26.0-34.0); MCHC 33.6 g/dL (28.0-37.0); MCV 91.7 fL (80.0-100.0); MONOCYTES 7.7 % (1.0-8.0); PLATELET COUNT 213 thou/uL (150-400); POLYS 89.5 % (36.0-66.0); RBC 3.16 mil/uL (4.50-6.00); RDW 13.4 % (10.5-14.5); WBC 14.5 thou/uL (4.0-11.0)
[2019-04-02 05:25] LABS: % SATURATION 4 % (20-39); IRON 6 ug/dL (65-175); TIBC 157 ug/dL (250-450)
[2019-04-02 05:32] LABS: ALBUMIN 2.3 g/dL (3.4-5.0); CALCIUM 8.6 mg/dL (8.5-10.1); CREATININE 3.8 mg/dL (0.7-1.3); TOTAL BILIRUBIN 0.6 mg/dL (<0.1-1.0); TOTAL PROTEIN 6.2 g/dL (6.4-8.2); URIC ACID* 12.5 mg/dL (2.6-7.2)
[2019-04-02 08:16] VITALS: BP 111/47
--- NOTE | 2019-04-02 18:53 | NUR ---
ASSUMED CARE OF PT AT 0700. ASSESSMENT CHARTED. PT NOT IMPROVING TOWARDS GOALS. FAMILY REPORTED PROGRESSIVE DECLINE SINCE HOSPITALIZATION. PHYSICIAN NOTIFIED. DR. KNIGHT ORDERED NEW IV ABX, CHEST XRAY, IRON, AM LABS. WILL ADMINISTER ORDERED. WILL CONTINUE TO FOLLOW POC.
[2019-04-02 19:42] VITALS: BP 146/89
--- NOTE | 2019-04-03 03:50 | NUR ---
ASSESSMENT COMPLETED.PT DENIED PAIN.N/V SO FAR.PT TURNED WHILE IN BED.MEDS CRUSHED IN APPLESAUCE AND HONEY THICK LIQUID.PT CONT ON IV ABX AND IVF ORDERED.NO BM NOTED SO FAR.PT RESTING ON HIS BED AT THIS TIME.FALL PRECAUTIONS IN PLACE,CALL LIGHT WITHIN REACH.
[2019-04-03 04:28] VITALS: BP 116/64
[2019-04-03 06:20] LABS: HEMOGLOBIN 9.2 gm/dL (14.0-18.0); MCH 30.1 pg (26.0-34.0); MCHC 32.9 g/dL (28.0-37.0); MCV 91.7 fL (80.0-100.0); RBC 3.06 mil/uL (4.50-6.00); RDW 13.6 % (10.5-14.5); WBC 13.7 thou/uL (4.0-11.0)
[2019-04-03 06:50] LABS: CALCIUM 8.6 mg/dL (8.5-10.1); MAGNESIUM 1.5 mg/dL (1.8-2.4); POTASSIUM 4.4 mmol/L (3.5-5.1); TOTAL BILIRUBIN 0.6 mg/dL (<0.1-1.0); TOTAL PROTEIN 6.1 g/dL (6.4-8.2)
[2019-04-03 08:29] VITALS: BP 119/78
[2019-04-03 13:19] LABS: URINE BILIRUBIN NEGATIVE (Negative); URINE BLOOD TRACE (Negative); URINE CLARITY CLEAR; URINE COLOR YELLOW; URINE GLUCOSE-RANDOM* NEGATIVE (Negative); URINE KETONES TRACE (Negative); URINE LEUKOCYTES-REFLEX NEGATIVE (Negative); URINE NITRITE-REFLEX NEGATIVE (Negative); URINE PROTEIN (DIPSTICK) TRACE (Negative); URINE SPECIFIC GRAVITY 1.015 (1.005-1.035); URINE UROBILINOGEN 0.2 E.U./dl (0.2-1.0)
--- NOTE | 2019-04-03 16:19 | NUR ---
Assumed pt care at 7am.Pt in bed most of the time today.Assessment completed. vss.Pt has some tremors to upper extremities amd involuntry movement to lower extremities.Ativan given with am meds and pt slept for over 3 hours but arousable.Family here and updates given.Dr Swift and Will here,order noted. Pt were concerned about pt current status and wanted cardiology consulted.Will call Dr Solis for order.
[2019-04-03 16:40] VITALS: BP 118/80
--- NOTE | 2019-04-03 17:46 | NUR ---
Pt. with decreased o2 sat-SUPERVISOR ELECTRONIC COILS activated-see flowsheet
[2019-04-03 22:44] VITALS: BP 99/72
[2019-04-03 23:53] VITALS: BP 101/42
[2019-04-04 03:38] VITALS: BP 100/74
--- NOTE | 2019-04-04 04:29 | NUR ---
Care taken over at 1999 when patient was transferred last night from [facility] to room 353. Patient oriented to person and has been unsure of place and time all shift. Patient confused and forgetful. Patient's daughters spoken with at start of shift at bedside. They were very upset and tearful explaining that this isn't their fathers baseline. All questions and concerns addressed. Patient remains very weak and still has the tremors. Tylenol given this AM for a 100.5 degree fever. Patient turned Q2H for skin integrity. Fall precautions in place. Not much progress toward plan of care at this time.
[2019-04-04 05:28] LABS: ABSOLUTE NEUTROPHILS 9.4 thou/uL (1.4-8.2); BASOPHILS 0.3 % (0.0-2.0); EOSINOPHILS 0.2 % (0.0-3.0); HEMATOCRIT 25.5 % (42.0-52.0); HEMOGLOBIN 8.6 gm/dL (14.0-18.0); LYMPHOCYTES 4.2 % (24.0-44.0); MCH 30.5 pg (26.0-34.0); MCHC 33.5 g/dL (28.0-37.0); MCV 90.8 fL (80.0-100.0); MONOCYTES 9.4 % (1.0-8.0); PLATELET COUNT 222 thou/uL (150-400); POLYS 85.9 % (36.0-66.0); RBC 2.81 mil/uL (4.50-6.00); RDW 13.3 % (10.5-14.5)
[2019-04-04 05:42] LABS: ALBUMIN 1.7 g/dL (3.4-5.0); CALCIUM 8.3 mg/dL (8.5-10.1); CREATININE 4.5 mg/dL (0.7-1.3); POTASSIUM 4.3 mmol/L (3.5-5.1); TOTAL BILIRUBIN 0.7 mg/dL (<0.1-1.0); TOTAL PROTEIN 5.5 g/dL (6.4-8.2)
[2019-04-04 08:01] VITALS: BP 118/40
--- NOTE | 2019-04-04 09:13 | EKG ---
[place] [address] [facility] [place] [address] ELECTROCARDIOGRAM REPORT Name: ZENA LAWS Room #: 353-P ADM IN M.R.#: [id number] ������������������ Admission: 03/29/19 ������������������ Attend Phys: Ike Solis MD, FAAF Discharge: ������������������ Date of : 36 Report #: [id number] ����������������������������������������������������������������� [id number] THIS REPORT FOR: //name// [facility] Test Date: 2019-04-03 Test Time: 16:39:40 Pat Name: ZENA LAWS Department: Room: [facility] Gender: M Research Center Director: TRUDY : 1935 Requested By: Ike Solis Order Number: [id number] MD: Lizandro De Jesus Measurements Intervals [place] Rate: 75 P: 5 NV: 246 QRS: -12 QRSD: 199 T: 238 QT: 498 QTc: 557 Interpretive Statements Paced rhythm Prolonged NV interval Left bundle branch block Compared to ECG 03/29/2019 00:16:32 Premature ventricular complexes are no longer present Electronically Signed On 04-04-2019 9:13:11 CDT by Lizandro De Jesus [email or web address] ��������������������������������������������� <ELECTRONICALLY SIGNED> ���������������������������������������� By: Lizandro De Jesus MD, [facility] ��������������������������������������������� [birth year]1913 1639 1639 Lizandro De Jesus MD, [facility] /EPI
--- NOTE | 2019-04-04 10:06 | NUR ---
Assess due to length of stay. Admitted with UTI, possible aspiration pneumonia, debility. Visit this am, pt had eaten 100% of breakfast including 100% of ensure pudding. Able to answer some questions and son also verbalized appetite is much better. Wts up 5-9 lb from usual. Requires modified diet per ST. On IVF at 75ml/hr. Low nutrition risk, continue to offer ensure pudding with breakfast and magic cup with dinner until appetite is consistently good.
[2019-04-04 11:10] VITALS: BP 97/39
[2019-04-04 12:56] LABS: URINE CREATININE-RANDOM* 103.3 mg/dL
--- NOTE | 2019-04-04 15:11 | NUR ---
SW reviewed chart and spoke with nursing. Pt was transferred to from yesterday after HONING MACHINE OPERATOR SEMIAUTOMATIC activation due to altered mental status. Renal and ID consulted. Pt is on IV abx. SW is following to assist as needed with discharge planning.
[2019-04-04 15:52] VITALS: BP 107/43
--- NOTE | 2019-04-04 18:44 | NUR ---
Assumed patient care at 0700. alert to self. drowsy. noted low unrine output. dr nam notified and dr ríos consulted. poor appetite. q2h turn. denies pain. slowly towards poc goals.
[2019-04-04 19:20] VITALS: BP 105/41
--- NOTE | 2019-04-04 22:59 | HC ---
[facility] [place] [address] CONSULTATION Name: ZENA LAWS Room #: 353-P [facility] IN M.R.#: [id number] Admission: 03/29/19 ������������������ Attend Phys: Ike Solis MD, [facility] Discharge: ������������������ Date of : 36 Report #: [id number] THIS REPORT FOR: //name// CC: Ike Solis DATE OF SERVICE: 04/03/2019 TYPE OF REPORT: Infectious diseases consultation. REASON FOR CONSULTATION: I was asked to evaluate concerning leukocytosis. HISTORY OF PRESENT ILLNESS: The patient is an 83-year old admitted on 03/29/2019 with confusion and fever. He had evidence of leukocytosis. Urinalysis had a few wbc's. Urine culture was negative. He complained of arthritis symptoms, which is his baseline. He has venous stasis disease and chronic lower extremity swelling with associated cellulitis. Denied any cough or sputum production or chest pain. There is no nausea or vomiting. The patient was unable to give me further details for he was encephalopathic. I did discuss his history in case with nursing who was in attendance. He was treated with ceftriaxone. He ran fever for the next 48 hours. He is now afebrile. He has an ongoing tremor. He was given Ativan this morning and is now minimally responsive. Prior to the Ativan, he was alert and cooperative. He was able to get out of bed and he ate his breakfast. He has had no respiratory compromise. His chest x-ray showed a right lower lobe infiltrate. He has had no cardiac issues noted. He does have a permanent pacemaker in the left chest. He is incontinent of urine. He has been incontinent of loose stool so far that today. He has had arthritis symptoms with a history of gout. He has right hip and left knee total arthroplasties. REVIEW OF SYSTEMS: A 10-point review of systems was negative other than what is described above. ALLERGIES: None known. MEDICATIONS: As noted on his MAR including ceftriaxone until yesterday, started on Zosyn. PAST MEDICAL HISTORY: Gout, ischemic cardiomyopathy, coronary artery disease, coronary bypass grafting, permanent pacemaker, chronic kidney disease, unilateral kidney, status post nephrectomy, atrial fibrillation, gastroesophageal reflux, hypertension, right total hip arthroplasty, right tib-fib fracture, left total knee arthroplasty and shoulder surgery. FAMILY HISTORY: Noncontributory. [address] [address] CONSULTATION Name: ZENA LAWS Maxine Room #: 353-P [facility] IN M.R.#: [id number] Admission: 03/29/19 ������������������ Attend Phys: Ike Solis MD, FAAF Discharge: ������������������ Date of : 37 Report #: [id number] SOCIAL HISTORY: He is retired and nonsmoker. No significant alcohol intake. Lives with his son. PHYSICAL EXAMINATION: GENERAL: He was afebrile. VITAL SIGNS: Pulse 100 and blood pressure 119/78. SKIN: With venous stasis changes and cellulitis of both lower extremities below the knee. No other lesions or decubiti. No palpable adenopathy. HEENT: Eyes without scleral icterus. Mouth without mucositis. NECK: Supple. LUNGS: Few crackles in the bases bilaterally, most notable on the right side. HEART: Regular, without murmur, gallop or rub. ABDOMEN: Soft and nontender, without hepatosplenomegaly or mass. GENITOURINARY: External genitalia incontinent of urine. No masses or rash. Perianal examination was without lesion. EXTREMITIES: Noted above. The patient was obtunded. He would resist opening his eyes. He did move all extremities. Unable to assess mood where he was in a depressed state due to his Ativan. LABORATORY STUDIES: Hemoglobin 9.2; WBC 13.1 and platelet count 230,000. Creatinine 4 with a baseline of 1.8. Liver function test normal. Blood cultures are negative. Urine culture was negative. Urinalysis, few wbc's and bacteria. RADIOLOGICAL DATA: Chest x-ray, right lower lobe infiltrate. CT of the chest was clear. IMPRESSION: Persistent leukocytosis, cause of which is yet to be determined. Considering aspiration pneumonia, urinary tract infection, colitis, gout. I doubt we are dealing with primary central nervous system infection considering this morning, his mental status was normal. He does have a left effusion in the setting of total knee arthroplasty. RECOMMENDATIONS: We will continue with Zosyn and monitor dosing in the setting of acute kidney injury. Check uric acid, treat for gout and check postvoid residual. If elevated, place a Stinson catheter, so we can better monitor his urine output in the setting of acute kidney injury. Renal ultrasound, stool for C. difficile by PCR. Repeat CBC and chemistry. Repeat urinalysis and urine culture. Hold Ativan, so we can better assess his neurologic status. ��������������������������������������������� <ELECTRONICALLY SIGNED> ���������������������������������������� By: Colin Swift MD ��������������������������������������������� 04/04/19 2259 1216 0045 Colin Swift MD /nt
--- NOTE | 2019-04-05 03:39 | NUR ---
SLEPT MOST OF SHIFT. REMAINS ORIENTED TO SELF ONLY. DOES KNOW BIRTHDATE BUT SAYS HE IS 17. TURNED EVERY 2 HOURS FOR COMFORT AND SKIN CARE. MAINTAIN SAFE ENVIRONMENT. WORKING ON GOALS AND PLAN OF CARE FOR NOC. NOT PROGRESSING TOWARDS DISCHARGE GOALS AT THIS TIME. CONTINUE TO ASSES.
[2019-04-05 04:59] VITALS: BP 116/36
[2019-04-05 06:22] LABS: ALBUMIN 1.6 g/dL (3.4-5.0); CALCIUM 8.2 mg/dL (8.5-10.1); CREATININE 4.5 mg/dL (0.7-1.3); PHOSPHORUS 4.8 mg/dL (2.5-4.9); POTASSIUM 4.3 mmol/L (3.5-5.1)
[2019-04-05 07:28] VITALS: BP 105/50
[2019-04-05 10:57] VITALS: BP 124/50
--- NOTE | 2019-04-05 14:45 | NUR ---
NARAYAN reviewed chart and spoke with nursing. Pt is slowly progressing towards goals for discharge. Therapy is recommending post-acute placement. NARAYAN spoke with pt's son, Crow, to discuss discharge plan. Crow requests SW contact his sister, Irais, to further discuss. NARAYAN spoke wicalixto Braxton via phone. Pt has been to [facility] and [facility]. Irais states that family's preference would be [facility], due to location. NARAYAN faxed clinical info to [facility] for review and left message for the admissions office. Awaiting call back at this time. NARAYAN is following to assist as needed with discharge planning.
[2019-04-05 15:56] VITALS: BP 109/58
[2019-04-05 18:14] VITALS: BP 114/77
--- NOTE | 2019-04-05 19:12 | NUR ---
PATIET RESTED IN BED. TURNED Q2. EDEMA TO BUE HAS PERSISTED AN ALSO HAS RECEDED TO BLE. HE IS NOW SLEEPING. HAD LOW GRADE TEMP EARLIER AND TREATED ACCORDINGLY. WILL CONT WITH PLAN OF CARE.
[2019-04-05 20:40] VITALS: BP 115/49
[2019-04-06 03:50] VITALS: BP 110/31
--- NOTE | 2019-04-06 04:27 | NUR ---
SLEPT MOST OF SHIFT. TURNED EVERY 2-3 HOURS FOR COMFORT. NOT PROGRESSING TOWARDS DISCHARGE GOALS. WORKING ON GOALS AND PLAN OF CARE FOR NOC. REMAINS ORIENTED TO SELF AND PLACE. DIAPHORETIC. TEMP. HIGH TONIGHT 100.1 AND TYLENOL GIVEN. ROOM WARM, TEMP ADJUSTED, FAN ON. COTNINUE TO ASSBERE HEWITT.
[2019-04-06 06:17] LABS: ABSOLUTE NEUTROPHILS 12.6 thou/uL (1.4-8.2); BASOPHILS 0.3 % (0.0-2.0); EOSINOPHILS 0.5 % (0.0-3.0); HEMATOCRIT 26.4 % (42.0-52.0); HEMOGLOBIN 8.6 gm/dL (14.0-18.0); LYMPHOCYTES 3.1 % (24.0-44.0); MCHC 32.5 g/dL (28.0-37.0); MCV 92.2 fL (80.0-100.0); MONOCYTES 5.8 % (1.0-8.0); POLYS 90.3 % (36.0-66.0); RBC 2.86 mil/uL (4.50-6.00); RDW 13.5 % (10.5-14.5); WBC 13.9 thou/uL (4.0-11.0)
[2019-04-06 06:25] LABS: PLATELET COUNT 308 thou/uL (150-400)
[2019-04-06 06:30] LABS: ALBUMIN 1.5 g/dL (3.4-5.0); CALCIUM 8.3 mg/dL (8.5-10.1); CREATININE 4.4 mg/dL (0.7-1.3); PHOSPHORUS 4.7 mg/dL (2.5-4.9); POTASSIUM 4.1 mmol/L (3.5-5.1)
[2019-04-06 08:41] VITALS: BP 112/41
--- NOTE | 2019-04-06 14:42 | NUR ---
SW reviewed chart and spoke with nursing. Pt was febrile overnight. [facility] NARAYAN is following to assist as needed with discharge planning.
[2019-04-06 15:45] VITALS: BP 114/50
--- NOTE | 2019-04-06 16:39 | NUR ---
DISCHARGE PLANNING. POST ACUTE RECOMMENDED AND DISCHARGE. [facility] IS PATIENTS PREFERENCE FOR POST ACUTE CARE NEEDS. CALL PLACED TO [facility] ADMISSIONS TO FOLLOW UP ON REFERRAL FAXED TO THEM YESTERDAY. VOICE MAIL LEFT FOR ADMISSIONS. AWAITING RESPONSE. UNIT CM/SW AWARE. FOLLOWIING TO ASSIST.
--- NOTE | 2019-04-06 18:20 | NUR ---
PATIENT DENIES PAIN WHEN ASKED. HAS BEEN TURNED Q2 THROUGH THE DAY. SEQUEIRA IN PLACE AND DRAINING CLEAR YELLOW URINE. HE CONT TO BE HYDRATED VIA IV. FAMILY HERE TO VISIT. EDEMA PERSISTS TO BUE.. LEFT KNEE EDEMA NOTED TO BE MORE PRONOUNCED TODAY. NEW ORDERS FOR XRAY NOTED..
[2019-04-06 19:24] VITALS: BP 123/45
[2019-04-07 04:19] VITALS: BP 117/36
--- NOTE | 2019-04-07 04:56 | NUR ---
SLEPT MOST OF SHIFT. TURNED FOR COMFORT AND SKIN CARE. INCONTINENT X1 OF MODERATE AMOUT OF LOOSE STOOL. MAINTAIN SAFE ENVIRONMENT. HANDS BILATERLY REMAIN EDEMETOUS, KEEPING ARMS ELEVATED ON PILLOWS. WORKING ON GOALS AND PLAN OF CARE FOR NOC. PROGRESSING SLOWLY TOWARDS DISCHARGE GOALS. REMAINS ORIENTED TO SELF AND SOMETIMES PLACE. CONTINUE TO ASSES CLOSELY.
[2019-04-07 06:19] LABS: ALBUMIN 1.5 g/dL (3.4-5.0); CALCIUM 8.7 mg/dL (8.5-10.1); CREATININE 4.2 mg/dL (0.7-1.3); PHOSPHORUS 4.9 mg/dL (2.5-4.9)
[2019-04-07 07:22] VITALS: BP 120/49
[2019-04-07 11:12] VITALS: BP 130/58
--- NOTE | 2019-04-07 11:44 | NUR ---
Assumed care of pt at 0700. pt aox2 pleasantly confused no acute distress, some lethargy. kidney function and urine output improving slowly. iv fluids managed by neph. incontinent of stool. repositioned Q2H and PRN. worked w/ PT. sinus on telemetry. temp 101 this morning - treated with tylenol - will cont to monitor. many family at bedside, updated on POC. all questions and concerns addressed. slow progress toward poc goals.
[2019-04-07 15:51] VITALS: BP 123/51
--- NOTE | 2019-04-07 16:29 | NUR ---
SW reviewed chart and spoke with nursing. Pt is slowly progressing towards goals for discharge. No weekend discharge anticipated. SW is following to assist as needed with discharge planning.
[2019-04-07 19:35] VITALS: BP 134/56
[2019-04-08 04:50] VITALS: BP 129/59
[2019-04-08 05:41] LABS: ABSOLUTE NEUTROPHILS 10.8 thou/uL (1.4-8.2); BASOPHILS 0.4 % (0.0-2.0); EOSINOPHILS 1.1 % (0.0-3.0); HEMATOCRIT 24.8 % (42.0-52.0); HEMOGLOBIN 8.2 gm/dL (14.0-18.0); LYMPHOCYTES 3.5 % (24.0-44.0); MCH 30.3 pg (26.0-34.0); MCHC 33.3 g/dL (28.0-37.0); MCV 91.1 fL (80.0-100.0); MONOCYTES 5.3 % (1.0-8.0); PLATELET COUNT 344 thou/uL (150-400); POLYS 89.7 % (36.0-66.0); RBC 2.72 mil/uL (4.50-6.00); RDW 13.6 % (10.5-14.5)
[2019-04-08 05:57] LABS: ALBUMIN 1.4 g/dL (3.4-5.0); CALCIUM 8.7 mg/dL (8.5-10.1); CREATININE 4.1 mg/dL (0.7-1.3); PHOSPHORUS 4.7 mg/dL (2.5-4.9); POTASSIUM 4.2 mmol/L (3.5-5.1)
--- NOTE | 2019-04-08 06:06 | NUR ---
PT MAKING POOR PROGRESS TOWARDS GOALS. PT SLOW TO RESPOND VERBALLY BUT DOES ANSWER QUESTIONS. ALERT UPON INITIAL ASSESSMENT, ORIENTED TO NAME ONLY. DENIED ANY PAIN BUT DOES GRIMACE AND MOAN WITH TURNING. TYLENOL GIVEN THIS MORNING PT FEELS WARM TO TOUCH WITH AN ORAL TEMP OF 99.5
[2019-04-08 07:24] VITALS: BP 139/55
[2019-04-08 11:09] VITALS: BP 128/47
--- NOTE | 2019-04-08 13:34 | NUR ---
Received asleep on bed. Due medications given as prescribed-crushed, mixed with apple sauce, able to swallow without difficulty. On pureed diet. On O2 at 2lpm via nasal cannula. With IV at R Hand, IVF infusing well. With lynn in situ, draining well. Assisted in ADLs. A+O to self, place and situation. Pt turned every 2 hours, with redness at his back, barrier cream applied. Opened his bowels today. With bilateral arm + hand swelling- kept elevated and L knee swelling. Above IV infiltrated, reinserted new IV at R hand. Still with tremors. Denies pain upon movement but with grimace- due PRN pain medication given as prescribed. Visited by relatives today. Pt seen by Dr Mora- IVF changed to D5NS at same rate. Seen by Dr Wakefield- knee aspirate done at bedside, specimen sent to lab for analysis, cell count, crystals and culture(aerobic and anaerobic). On heart monitor.
[2019-04-08 16:01] VITALS: BP 131/59
[2019-04-08 17:14] LABS: CLARITY CLOUDY; COLOR PINK
[2019-04-08 17:15] LABS: BF NUCLEATED CELLS 2125
[2019-04-08 17:16] LABS: BF RBC 25000 /uL
[2019-04-08 17:17] LABS: BF MACROPHAGE 2; BF NEUTROPHILS 95; SOURCE KNEE JOINT; TOTAL VOLUME 70 mL
[2019-04-08 19:35] VITALS: BP 136/41
[2019-04-09 04:00] VITALS: BP 129/55
[2019-04-09 05:27] LABS: ALBUMIN 1.4 g/dL (3.4-5.0); CALCIUM 8.6 mg/dL (8.5-10.1); CREATININE 4.1 mg/dL (0.7-1.3); PHOSPHORUS 4.9 mg/dL (2.5-4.9); POTASSIUM 4.5 mmol/L (3.5-5.1)
--- NOTE | 2019-04-09 06:16 | NUR ---
HOURLY ROUNDING AND Q2 TURNS. PT HAS BILATERAL EDEMA ON LOWER EXEMITIES AND BILATER LOWER ARMS/HANDS. PT IS VERY GROGGY BUT EASILY AROUSED TO ASK QUESTIONS. PT SLEEPING MOST OF SHIFT. PT SLOW ON PROGRESSING TO DC GOALS. CM STATES PT WILL NOT RECEIVE ANY DC ORDERS OVER THE WEEKEND. PT TAKES PO MEDICATION CRUSHED IN APPLE SAUCE, PUDDING, OR YOGURT. SEQUEIRA IN PLACE DUE TO BEDREST.
[2019-04-09 07:47] VITALS: BP 137/62
[2019-04-09 11:32] VITALS: BP 116/47
[2019-04-09 15:23] VITALS: BP 137/63
[2019-04-09 19:02] VITALS: BP 109/46
--- NOTE | 2019-04-09 19:11 | NUR ---
Assumed pt care this am, pt is a total care. FC intact and draining yellow urine. Pt was able to eat breakfast and take all his medication crushed with pudding. Fluid intake was encouraged, IV fluids increased as per Dr. Mora. Appetite increased during dinner, bed bath given. Pt had a large liquid stool, delgado care given. Labs monitored informed Dr. Solis. POC followed, minimal complaint of pain was noted medication given, partially resolced. Bilaterla edema on bot extremities are still present.
[2019-04-10 03:01] VITALS: BP 124/50
[2019-04-10 05:35] LABS: ALBUMIN 1.4 g/dL (3.4-5.0); CALCIUM 8.3 mg/dL (8.5-10.1); CREATININE 3.8 mg/dL (0.7-1.3); PHOSPHORUS 4.7 mg/dL (2.5-4.9); POTASSIUM 4.2 mmol/L (3.5-5.1)
--- NOTE | 2019-04-10 05:39 | NUR ---
PT HAD X1 BOWEL INCONT EARLY IN EVENING SHIFT. PT IS Q2 TURNS. PT TAKES PILLS CRUSHED IN PUDDING THIS EVENING. PT REST MOST OF TIME, AWAKENS EASILY TO VERBAL STIMULATION. PT STATES HE NEEDS TO DRINK MORE FLUIDS. FOLLOWING POC WITH IVF AND IVPB. HOURLY ROUNDING. SEQUEIRA IN FOR STRICT I&O.
[2019-04-10 07:30] VITALS: BP 114/49
[2019-04-10 11:19] VITALS: BP 127/55
--- NOTE | 2019-04-10 11:27 | HC ---
[facility] [place] [address] [place] [address] CONSULTATION Name: ZENA LAWS Room #: 353-P ADM IN M.R.#: [id number] Admission: 03/29/19 ������������������ Attend Phys: Ike Solis MD, [facility] Discharge: ������������������ Date of : 36 Report #: [id number] THIS REPORT FOR: //name// CC: Ike Solis DATE OF SERVICE: 04/04/2019 ATTENDING PHYSICIAN: Dr. Ike Solis. REASON FOR CONSULTATION: Elevating creatinine. HISTORY OF PRESENT ILLNESS: The patient is an 83-year-old gentleman with ischemic cardiomyopathy and low ejection fraction and history of both right and left-sided congestive heart failure. He was admitted with weakness, fever, and leukocytosis, questionable UTI and also what was felt to be possible lower lobe pneumonia versus atelectasis. He appears to have known chronic kidney disease. He has a solitary kidney. 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 His baseline creatinine appears to be about 2 or maybe a little higher. His creatinine was 2 at the time of admission, but his creatinine has elevated up to 2.9, 3.8, now up to 4.5. Of note, he is on torsemide, which he is on chronically, but remained on here in the hospital despite poor p.o. intake. PAST MEDICAL HISTORY: Ischemic cardiomyopathy as mentioned. He has history of previous coronary bypass and coronary artery stents, pacemaker with an ICD placement, history of atrial fibrillation, previous history of hypertension and right hip arthroplasty, left total knee arthroplasty, has had previous shoulder surgery and a history of gout. SOCIAL HISTORY: Retired, does not smoke. No significant alcohol. Lives at home with his son. FAMILY HISTORY: Negative for renal disease. REVIEW OF SYSTEMS: Really cannot be taken from the patient at the current time due to his somewhat depressed mental status, although he does awake. As far as we can tell he has not been shortwinded, he is not complaining of any chest pain. His appetite has been poor. He does have a Stinson catheter in. No complaints of nausea, vomiting or diarrhea. PHYSICAL EXAMINATION: GENERAL: This is a chronically ill-appearing gentleman in no acute distress. He is arousable and answers simple questions, but easily confused. He is oriented to place. SKIN: Some venous stasis changes in the lower extremities with possible infection as well. SKELETAL: Well-developed, well-nourished without any amputations. [address] [address] CONSULTATION Name: ZENA LAWS Room #: 353-P [facility] IN .R.#: [id number] Admission: 03/29/19 ������������������ Attend Phys: Ike Solis MD, FAAF Discharge: ������������������ Date of : 36 Report #: [id number] HEENT: Extraocular movements appear to be full. No scleral icterus. Hearing and vision grossly intact. Tongue is dry. NECK: Supple. I see no JVD. CHEST: Shows scanty crackles at the lung bases. HEART: Regular. ABDOMEN: Soft and nontender, without bruits, masses or organomegaly. EXTREMITIES: Possibly very trace dependent edema. LABORATORY DATA: As mentioned, creatinine was 2 on admission, now is 4.5. BUN was 54 on admission, now 98. Creatinine as mentioned up to 4.5. Urinalysis is at this point benign. ASSESSMENT AND PLAN: 1. Elevating creatinine, is not entirely clear, but volume depletion could be playing a role. I will temporarily hold his torsemide, which he is on chronically try some gentle saline, see if we can get his creatinine to start coming down. Blood pressures if anything have been on the low side. Review of his medications does not yield any nephrotoxins. Possibly, we will need to decrease his carvedilol unless his blood pressure come up, just to touch as well. His heart rate is well controlled at 60. 2. Status post remote left nephrectomy. 3. Heart failure with reduced ejection fraction, ischemic in nature. 4. History of atrial fibrillation. 5. Pacemaker with implantable cardioverter defibrillator placement. 6. History of joint replacements. 7. Possible pneumonia. ��������������������������������������������� <ELECTRONICALLY SIGNED> ���������������������������������������� By: Jose Mora MD ��������������������������������������������� 04/10/19 1127 [id number] Jose Mora MD /nt
--- NOTE | 2019-04-10 15:08 | NUR ---
NARAYAN reviewed chart and spoke with nursing and attending physician. Pt is slowly progressing towards goals for discharge. Pt had aspiration of knee. Pt remains on IV abx. NARAYAN spoke with pt's dtr, Irais, via phone to provide update and discuss discharge plan. NAR[facility]AN updated that [facility] not able [facility] accept at this time. Additional options provided. SNF list left in pt's room for review. NARAYAN sent SNF list to pt's dtr via email. NARAYAN is following to assist as needed with discharge planning.
[2019-04-10 16:10] VITALS: BP 131/60
--- NOTE | 2019-04-10 18:45 | NUR ---
RESTED IN BED THROUGH THE DAY. HE HAS BEEN MORE ALERT TODAY. CONVERSING WITH STAFF AND FAMILY WITH MINIMAL DIFFICULTY. ATE MOST OF HIS MEALS. NEW ORDERS TO STATE STERIODS NOTED. EDEMA PERSISTS TO BUE AND ALSO TO LEFT KNEE. NO COMPLAIN OF PAIN. WILL CONT WITH PLAN OF CARE.
[2019-04-10 19:55] VITALS: BP 123/71
[2019-04-11 04:35] VITALS: BP 119/68
[2019-04-11 05:46] LABS: ALBUMIN 1.4 g/dL (3.4-5.0); CALCIUM 8.6 mg/dL (8.5-10.1); CREATININE 3.3 mg/dL (0.7-1.3); PHOSPHORUS 4.9 mg/dL (2.5-4.9); POTASSIUM 4.9 mmol/L (3.5-5.1)
--- NOTE | 2019-04-11 06:35 | NUR ---
Q2 TURNS FOR PT AND PRESSURE ULCER PRECAUTIONS IN PLACE. PRATHO BOOTS IN PLACE. PT HAD 1 BM ON 04/10, MEDICATIONS ARE CRUSHED IN PUDDING IS WHAT HE STATED HE WANTED TONIGHT. ORAL PREDISONE STARTED WITH EVENING MED PASS. HOURLY ROUNDING AND POC WITH IVPB AND D5 @80ML/HR.
[2019-04-11 07:59] VITALS: BP 137/60
--- NOTE | 2019-04-11 10:22 | NUR ---
Changed nutrition status to high nutrition risk.
[2019-04-11 11:17] VITALS: BP 149/65
--- NOTE | 2019-04-11 12:51 | NUR ---
NARAYAN reviewed chart and spoke with nursing and attending physician. Pt started on prednisone yesterday. SW followed up with pt's dtrs regarding post-acute placement. [facility]'s preference [facility]. They are also interested in [facility], [facility] and [facility]. Pt's family requesting family meeting with attending physician, ID physician and renal physician. SW explained that it will most likely not be possible to meet with all three physicians. Attending will be able to relay info from the consultants to family. Family is insisting on meeting with all three physician. SW encouraged family to be at the bedside throughout the day, as physicians round throughout the day. NARAYAN requested attending physician to contact pt's dtr, Irais. NARAYAN faxed updated clinical info to [facility] and spoke with Sandy in admissions to request them to re-evaluate pt. Awaiting input at this time from [facility]. NARAYAN is following to assist as needed with discharge planning.
[2019-04-11 15:44] VITALS: BP 134/86
--- NOTE | 2019-04-11 18:03 | NUR ---
PATIENT DOES NOT SEEM TO BE IN PAIN AT THIS TIME. HE HAS RESTED IN BED THROUGH THE DAY. CONT TO WORK WIHT THERAPIES. SOME PROGRESS TOWARDS DISCHARGED GOALS. SWELLING TO BILAT HANDS STILL PERSISTS TODAY. BOTH HANDS ELEVATED. WILL CONT WITH PLAN OF CARE.
[2019-04-11 19:39] VITALS: BP 156/64
[2019-04-12 04:38] VITALS: BP 147/48
[2019-04-12 05:43] LABS: HEMATOCRIT 29.6 % (42.0-52.0); HEMOGLOBIN 9.7 gm/dL (14.0-18.0); MCH 30.2 pg (26.0-34.0); MCHC 32.8 g/dL (28.0-37.0); MCV 92.1 fL (80.0-100.0); PLATELET COUNT 463 thou/uL (150-400); RBC 3.22 mil/uL (4.50-6.00); RDW 14.1 % (10.5-14.5); WBC 7.9 thou/uL (4.0-11.0)
[2019-04-12 06:09] LABS: ALBUMIN 1.5 g/dL (3.4-5.0); CALCIUM 8.8 mg/dL (8.5-10.1); PHOSPHORUS 4.5 mg/dL (2.5-4.9); POTASSIUM 4.7 mmol/L (3.5-5.1)
[2019-04-12 06:44] LABS: ABSOLUTE NEUTROPHILS 7.3 thou/uL (1.4-8.2)
[2019-04-12 06:45] LABS: PLATELET ESTIMATE INCREASED
[2019-04-12 07:38] VITALS: BP 159/69
--- NOTE | 2019-04-12 07:43 | NUR ---
PT MAKING PROGRESS TOWARDS GOALS. DENIED NEED FOR ANY PAIN MEDICATION. PER DAY RN, SWELLING HAS DECREASED SLIGHTLY IN HIS LEFT KNEE. PT GUARDS LEFT KNEE WITH MOVEMENT THOUGH. REMAINS ORIENTED TO NAME AND PLACE ONLY.
[2019-04-12 11:45] VITALS: BP 164/88
--- NOTE | 2019-04-12 14:06 | NUR ---
NARAYAN reviewed chart and spoke with nursing and attending physician. Voice message left for admissions dept at [facility] to follow up on referral and updates faxed yesterday. Awaiting call back at this time. Attending physician to discuss plan of care with pt's family. SW updated pt's dtrs. NARAYAN is following to assist as needed with discharge planning.
[2019-04-12 16:25] VITALS: BP 135/68
[2019-04-12 19:38] VITALS: BP 122/54
--- NOTE | 2019-04-12 19:53 | NUR ---
PATIENT HAS SLEPT THE DAY. HE IS MORE ALERT TODAY. EDEMA TO BILAT HAND SIGNIFICANTLY DECLINED. HE IS PLEASANT WITH CARE. SEQUEIRA IN PLACE. NO FEVERS NOTED. WILL CONT WITH PLAN OF CARE.
[2019-04-13 05:08] VITALS: BP 145/66
--- NOTE | 2019-04-13 05:34 | NUR ---
resting quietly tonight. denies pain, cooperative, and continues to be confused. continues on iv fluids. needs encouraging to drink fluids. careplan reviewed. progressing slowly toward discharge goals.
[2019-04-13 07:14] VITALS: BP 149/61
--- NOTE | 2019-04-13 07:22 | H ---
[facility] [place] [address] [place] [address] HISTORY AND PHYSICAL Name: ZENA LAWS Room #: 353-P ADM IN M.R.#: [id number] Admission: 03/29/19 ������������������ Attend Phys: Ike Solis MD, FAAF Discharge: ������������������ Date of : 36 Report #: [id number] THIS REPORT FOR: //name// CC: Ike Solis DATE OF SERVICE: 03/29/2019 CHIEF COMPLAINT: Urinary tract infection; altered mental status. HISTORY OF PRESENT ILLNESS: The patient is an 83-year-old white male well known to me, I am his primary care physician. He was confused in the morning of this admission. Stays with his son. He was not acting himself, so his son called the ambulance, he was noted to be afebrile en route to the Emergency Department with a temperature of 101.9, in the Emergency Department was noted to be 102.6. His workup was unremarkable except for chronic anemia in the 10 range and leukocytosis with infected urine. He was started on IV antibiotics and admitted to hospital. PAST MEDICAL HISTORY: Recent right arm cellulitis versus gout, ischemic cardiomyopathy, ICD in 2011, ejection fraction 30-35%, coronary artery disease, coronary artery bypass graft surgery, chronic renal insufficiency, one kidney removed, atrial fibrillation, GERD, hypertension, left bundle branch block, nephrectomy, right total hip replacement, right tib-fib fracture in 1984, total knee arthroplasty in 2009, shoulder surgery, [place], cardiac stents. MEDICATIONS: Amiodarone 400 mg b.i.d., tamsulosin 0.4 mg 1 p.o. daily, gabapentin 300 mg 1 p.o. b.i.d., quinapril 10 mg p.o. at bedtime, simvastatin 20 mg p.o. daily in the evening, omeprazole 20 mg 2 p.o. daily, B complex with C and folic acid, Nephrocaps Softgel 1 p.o. daily, ferrous sulfate 325 mg 1 p.o. daily, folic acid 1 mg p.o. daily, torsemide 100 mg p.o. daily. ALLERGIES: No known drug allergies. SOCIAL HISTORY: He is retired, lives with his son in [place]. Nonsmoker, nondrinker. FAMILY HISTORY: Noncontributory. REVIEW OF SYSTEMS: Positive for fever, confusion, infected urine. Negative for chest pain, difficulty breathing, abdominal pain. His gait is poor. Currently, difficulty walking, making transfers. Remainder of system review is negative. OBJECTIVE: VITAL SIGNS: Temperature 39.2, pulse 68, respirations 13, blood pressure 131/56, pulse ox on room air is 94%. GENERAL: [place] [address] HISTORY AND PHYSICAL Name: ZENA LAWS Room #: 353-P [facility] IN M.R.#: [id number] Admission: 03/29/19 ������������������ Attend Phys: Ike Solis MD, FAAF Discharge: ������������������ Date of : 36 Report #: [id number] HEENT: Pupils equal, round, reactive to light and accommodation. Extraocular muscles intact. Pharynx unremarkable. NECK: Supple. COR: S1, S2. CHEST: Clear. ABDOMEN: Soft, nontender. EXTREMITIES: With lower extremity edema, katie, stasis dermatitis on both sides, 1+ edema. NEUROLOGIC: Intact without focal neurologic deficit. LABORATORY DATA: CBC: White count is 15.7, hemoglobin 11.3, hematocrit 33.9, platelets 237,000. Segmented neutrophils 92%. Serum chemistry: Sodium 131, potassium 4.2, chloride 95, CO2 of 24, anion gap is 12, BUN 54, creatinine 2.0. Estimated GFR is 32, glucose 91. Lactate 1.3, calcium is 8.8, total bilirubin 0.7, AST is 41, ALT 58, alkaline phosphatase 141. Creatinine kinase 79. Troponin less than 0.06. Total protein 7.0, albumin 3.4. Urine is yellow voided specimen appears clear, pH 5.5, specific gravity less than 1.005, negative for protein, ketones, nitrite, bilirubin, 1+ blood is noted. Urobilinogen 0.2 1+ leukocyte esterase is seen, 3-10 red cells per high powered field, 6-15 white cells per high powered field, 0-3 squamous epithelial cells per low powered field, no crystals seen, 1-9 bacteria per high powered field, no casts and negative glucose. ASSESSMENT: Urinary tract infection, leukocytosis, stasis dermatitis, venous insufficiency and anemia. PLAN: Admit to hospital. Continue Rocephin. Urine cultures pending at time of this dictation, but is in the early signs IV antibiotics, appears to be very favorable. ��������������������������������������������� <ELECTRONICALLY SIGNED> ���������������������������������������� By: Ike Solis MD, FAAFP, FACEP ��������������������������������������������� 04/13/19 0722 1630 [id number] Ike Solis MD, FAAFP, FACEP /nt
--- NOTE | 2019-04-13 10:46 | NUR ---
SW reviewed chart and spoke with nursing and attending physician. Family meeting planned for tomorrow at 0930. Family is requesting ID and renal physician to be present. Will page physicians when family is present to see if they are able to come speak with family. Family would like an update from these physicians and what they recommend as to the next step will be for pt. production control planner left voice message for [facility]. Awaiting input from [facility] at this time. NARAYAN is following to assist as needed with discharge planning.
[2019-04-13 10:55] VITALS: BP 157/66
--- NOTE | 2019-04-13 13:41 | NUR ---
DISCHARGE PLANNING. PATIENT IS PROGRESSING TOWARDS DISCHARGE GOALS. POST ACUTE RECOMMENDED AT DISCHARGE. CALL PLACED TO [facility] ADMISSIONS, TO FOLLOW UP ON PATIENTS POST ACUTE CARE NEEDS. FAMILY REQUESTING [facility] REYNOLDS AT DISCHARGE. UPDATED CLINICAL INFORMATION FAXED TO [facility] FOR REVIEW. [facility]ARY TO NOTIFY CM ONCE REVIEW IS COMPLETED. UNIT SW AWARE. FOLLOWING TO ASSIST. JULIEN REYNOLDS CONTACT INFORMATION-[facility] [phone] FAX [phone]
[2019-04-13 15:59] VITALS: BP 148/69
[2019-04-13 19:35] VITALS: BP 160/74
--- NOTE | 2019-04-13 19:40 | NUR ---
QUIET UNEVENTFUL DAY. PATIENT'S DTR NARGIS CONCERNED PATIENT MORE CONFUSED TODAY. DR. KNIGHT ROUNDED AND SPOKE WITH FAMILY. WILL CONTINUE TO OBSERVE AND RE-EVALUATE TOMORROW. BUNNY BOOTS ON BILATERAL FEET. LEFT HEEL BRUISING NOTED. DENIED PAIN. UPPER EXTREMITY EDEMA LESSENING. CRUSHED MEDS AND GIVEN WITH APPLESAUCE. FAMILY AT BEDSIDE THROUGHOUT THE DAY. PATIENT IS A TOTAL CARE. TURNED Q2H. GOOD URINE OUTPUT. IV ANTIBIOTICS CONTINUED ORDERED. FALL PRECAUTIONS IN PLACE.
[2019-04-14 04:42] VITALS: BP 131/87
[2019-04-14 05:20] LABS: HEMATOCRIT 30.2 % (42.0-52.0); HEMOGLOBIN 9.8 gm/dL (14.0-18.0); MCH 30.5 pg (26.0-34.0); MCHC 32.5 g/dL (28.0-37.0); MCV 93.9 fL (80.0-100.0); PLATELET COUNT 422 thou/uL (150-400); RBC 3.22 mil/uL (4.50-6.00); RDW 14.1 % (10.5-14.5)
[2019-04-14 05:45] LABS: ALBUMIN 1.8 g/dL (3.4-5.0); CALCIUM 9.2 mg/dL (8.5-10.1); CREATININE 2.5 mg/dL (0.7-1.3); MAGNESIUM 2.5 mg/dL (1.8-2.4); PHOSPHORUS 4.5 mg/dL (2.5-4.9); TOTAL BILIRUBIN 0.4 mg/dL (<0.1-1.0); TOTAL PROTEIN 5.9 g/dL (6.4-8.2); URIC ACID* 8.8 mg/dL (2.6-7.2)
[2019-04-14 05:48] LABS: POTASSIUM 5.3 mmol/L (3.5-5.1)
[2019-04-14 06:40] LABS: ABSOLUTE NEUTROPHILS 7.5 thou/uL (1.4-8.2)
[2019-04-14 06:41] LABS: ANISOCYTOSIS 1+; PLATELET ESTIMATE INCREASED; POIKILOCYTOSIS 1+; POLYCHROMASIA 1+
--- NOTE | 2019-04-14 06:44 | NUR ---
ASSUMED CARE FOR PT AT 1845. FOLLOWING POC WITH Q2 TURNS. PT TAKES PILLS WITH YOGURT. PT SMILES AND COMPLETES SMALL SENTENCES. PT STILL HAS SOME CONFUSION IT SEEMS FROMT STERIODS. VSS AND NO FEVER. HOURLY ROUNDING.
[2019-04-14 07:13] VITALS: BP 155/73
[2019-04-14 11:39] VITALS: BP 163/80
--- NOTE | 2019-04-14 11:57 | NUR ---
NARAYAN reviewed chart and spoke with nursing and attending physician. Family meeting held this morning at 0930 with attending physician, SW, renal physician and pt's dtrs (Carrie Braxton and Zenaida). Lengthy discussion regarding pt's current condition, plan of care and discharge disposition. Pt is on thickened liquids and not consuming much fluids. IVF to be restarted over the weekend. Peg tube placement was addressed to discuss supplementing pt with artificial hydration and nutrition. All of pt's dtrs state that pt would not want a peg tube. LTAC v. SNF placement discussed. Pt's family have now said they are not wanting pt to go to [facility]. Pt's family is interested in [facility]. SW also provided options for LTAC. Pt's family request referral to be sen to [facility] for review, due to location and physician continuity of care. No weekend discharge planned. raw material planner faxed clinical info to [facility] and [facility]. NARAYAN notified [facility] liaison who will evaluate pt today. NARAYAN spoke with Renee in admissions at [facility] to notify of new referral. NARAYAN discussed with Renee that pt will not be discharged over the weekend and LTAC is being considered. NARAYAN is following to assist as needed with discharge planning.
--- NOTE | 2019-04-14 14:46 | NUR ---
TOWARDS POC PT A/O X1. CALM. PT SLEEPS ON THE BED MOST OF THE SHIFT. WILL CONTINUE TO MONITOR
[2019-04-14 17:03] VITALS: BP 141/85
[2019-04-14 19:50] VITALS: BP 185/80
[2019-04-15 04:30] VITALS: BP 178/93
[2019-04-15 05:55] LABS: ALBUMIN 2.1 g/dL (3.4-5.0); CREATININE 2.3 mg/dL (0.7-1.3); PHOSPHORUS 3.9 mg/dL (2.5-4.9); POTASSIUM 4.9 mmol/L (3.5-5.1)
--- NOTE | 2019-04-15 07:35 | NUR ---
PATIENT IS NOT PROGRESSING IN HIS CARE PLAN. VITAL SIGNS MOSTLY STABLE THROUGHOUT SHIFT WITH PATIENT EXHIBITING HYPERTENSION. ORIENTED TO SELF, PATIENT STILL REMAINS CONFUSED AND HAS TROUBLES COMMUNICATING. SWALLOW PRECAUTIONS FOLLOWED. PATIENT WAS TURNED FREQUENTLY WITH SKIN PROTECTION IMPORTANT. CONTINUE PLAN OF CARE.
[2019-04-15 07:42] VITALS: BP 156/79
[2019-04-15 11:18] VITALS: BP 172/81
--- NOTE | 2019-04-15 12:00 | NUR ---
PT LETHARGIC, ACCORDING TO DAUGHTER HE IS MORE ALERT AND INTERACTIVE. PT RETAINING FLUIDS, 405 ON BLADDER SCAN. BLOOD PRESSURE AT 1130 172/81. WILL REINSERT NEW SEQUEIRA AND RECHECK BLOOD PRESSURE.
[2019-04-15 14:00] VITALS: BP 154/74
[2019-04-15 15:55] VITALS: BP 167/77
[2019-04-15 19:18] LABS: URINE BILIRUBIN NEGATIVE (Negative); URINE BLOOD 2+ (Negative); URINE CLARITY CLEAR; URINE COLOR YELLOW; URINE GLUCOSE-RANDOM* NEGATIVE (Negative); URINE KETONES NEGATIVE (Negative); URINE NITRITE-REFLEX NEGATIVE (Negative); URINE PROTEIN (DIPSTICK) TRACE (Negative); URINE UROBILINOGEN 0.2 E.U./dl (0.2-1.0)
[2019-04-15 19:21] LABS: URINE LEUKOCYTES-REFLEX 1+ (Negative)
[2019-04-15 19:37] LABS: BACTERIA-REFLEX None Seen /HPF (None Seen); CASTS None Seen /LPF (None Seen); SQUAMOUS 0-3 Few /LPF (0-3); URIC ACID CRYSTALS >10 Many /LPF (None Seen); URINE RBC 0-2 Rare /HPF (0-2); URINE WBC-REFLEX 6-15 Few /HPF (0-5); YEAST-REFLEX Present (None Seen)
[2019-04-15 19:55] VITALS: BP 150/67
[2019-04-16 04:30] VITALS: BP 142/60
[2019-04-16 05:13] LABS: ALBUMIN 1.8 g/dL (3.4-5.0); CALCIUM 8.8 mg/dL (8.5-10.1); CREATININE 2.1 mg/dL (0.7-1.3); PHOSPHORUS 3.5 mg/dL (2.5-4.9); POTASSIUM 4.6 mmol/L (3.5-5.1)
--- NOTE | 2019-04-16 07:35 | NUR ---
Family members visited with pt. last night. Awake for turns and able to state name otherwise confused. He took HS meds crushed with pudding and had little sips of thickened water. He has been repositioned for comfort. Moans when being turned and has generalized weakness. Arms elevated with pillows.O2 at 2L/NC and does have shortness of breath with exertion. Bed alarm on for safety. Will continue to monitor.
[2019-04-16 07:44] VITALS: BP 151/74
[2019-04-16 11:20] VITALS: BP 140/89
[2019-04-16 15:51] VITALS: BP 132/64
[2019-04-16 18:03] LABS: ALBUMIN 1.8 g/dL (3.4-5.0); DIRECT BILIRUBIN 0.5 mg/dL (<0.1-0.3); TOTAL BILIRUBIN 0.7 mg/dL (<0.1-1.0); TOTAL PROTEIN 5.6 g/dL (6.4-8.2)
[2019-04-16 19:17] VITALS: BP 138/62
--- NOTE | 2019-04-16 20:27 | NUR ---
ASSUMED CARE OF PATIENT AT 0715, PATIENT LETHARGIC, EYE OPENING WHEN NAME CALLED, BUT UNCLEAR SPEECH/CONFUSED. NO S/S OF PAIN NOTED. PATIENT HAS O2 AT 2 LITERS/NC IN PLACE, RECEIVES BREATHING TREATMENTS SCHEDULED. PATIENT HAS RIGHT FOREARM IV IN PLACE WITH D5 AT 80CC/HR, DR FOX HERE THIS AM, RECEIVED ORDER TO INCREASE IV FLUIDS TO 120CC/HR. PATIENT SPIKED A TEMP DURING THE SHIFT, NOTIFIED DR DELCID FOR TYLENOL CHANGED TO 650 MG Q 4 HOURS/PRN. WHEN TYLENOL GIVEN, TEMP 102.5, COOL TOWELS APPLIED AND COVERS REMOVED, REASSESED TEMP 201.8. FAMILY AT BEDSIDE MOST OF THE DAY AND VERY CONCERNED ABOUT THEIR DAD'S CONDITION, HE HAS BEEN DECLINING. THIS RN NOTIFIED DR MCMILLAN INF. DISEASE ABOUT FEVER, RECEIVED ORDER FOR VANCO 1250MG IVPB X 1 AND CEFEPIME 2 GM IVPB X 1, CT SCAN OF ABD./PELVIS W/O CONTRAST, AND LABS:LIVER FUNCTION TEST AND LACTIC ACID. NOTIFIED FAMILY OF NEW ORDERS/MICHAELLE/DAUGHTER. WILL CONTINUE TO MONITOR.
[2019-04-16 23:28] VITALS: BP 158/71
[2019-04-17 03:27] VITALS: BP 160/66
--- NOTE | 2019-04-17 05:16 | NUR ---
PT MAKING POOR PROGRESS TOWARDS GOALS. PT HAS SLEPT MUCH OF THE NIGHT. INITIAL TEMP WAS 99.9 ORALLY. THIS AM TEMP 98.2 ORALLY. DID OPEN EYES TO VOICE BUT DID NOT ANSWER ANY QUESTIONS. DID SAY ONE WORD AFTER HIS NAME WAS STATED THIS MORNING WHICH WAS "WHAT." CT ABD/PELV COMPLETED LAST NIGHT.
[2019-04-17 05:57] LABS: ALBUMIN 1.7 g/dL (3.4-5.0); CALCIUM 9.1 mg/dL (8.5-10.1); CREATININE 2.2 mg/dL (0.7-1.3); PHOSPHORUS 3.5 mg/dL (2.5-4.9); POTASSIUM 4.7 mmol/L (3.5-5.1)
[2019-04-17 07:37] VITALS: BP 162/68
--- NOTE | 2019-04-17 11:09 | NUR ---
Followup: extended hospitalization. Has not been eating well with recent hypernatremia. Na better today 147. Requires D5 IVF managed by renal. Family meeting was held 04/14 with documentation by DEVI that pt would not want to have PEG placement. Continue to offer diet and oral supplements as tolerated. Available for further consult if indicated.
[2019-04-17 11:12] VITALS: BP 165/71
--- NOTE | 2019-04-17 14:26 | NUR ---
NARAYAN reviewed chart and spoke with nursing and attending physician. Pt remains on IV fluids. Abx being adjusted. Pt was febrile over the weekend. Neuro consulted. CT of abdomen/pelvis completed yesterday. Per neuro, pt may need an LP. Family to discuss. [facility] liaison to be onsite this afternoon to evaluate pt for admission to LTAC. NARAYAN faxed clinical updates to [facility]. NARAYAN updated pt's dtrs. NARAYAN also updated Renee in admissions at [facility]. NARAYAN is following to assist as needed with discharge planning.
[2019-04-17 15:14] VITALS: BP 156/62
[2019-04-17 19:25] VITALS: BP 122/52
[2019-04-18 03:45] VITALS: BP 157/64
[2019-04-18 05:36] LABS: ABSOLUTE NEUTROPHILS 12.7 thou/uL (1.4-8.2); BASOPHILS 0.3 % (0.0-2.0); EOSINOPHILS 0.7 % (0.0-3.0); HEMATOCRIT 23.8 % (42.0-52.0); HEMOGLOBIN 7.6 gm/dL (14.0-18.0); MCH 30.2 pg (26.0-34.0); MCHC 31.9 g/dL (28.0-37.0); MCV 94.5 fL (80.0-100.0); PLATELET COUNT 193 thou/uL (150-400); RBC 2.52 mil/uL (4.50-6.00); RDW 14.3 % (10.5-14.5); WBC 14.3 thou/uL (4.0-11.0)
[2019-04-18 05:59] LABS: ALBUMIN 1.4 g/dL (3.4-5.0); CALCIUM 8.5 mg/dL (8.5-10.1); CREATININE 2.4 mg/dL (0.7-1.3); POTASSIUM 4.5 mmol/L (3.5-5.1); TOTAL BILIRUBIN 0.8 mg/dL (<0.1-1.0); TOTAL PROTEIN 5.3 g/dL (6.4-8.2)
--- NOTE | 2019-04-18 06:00 | NUR ---
PATIENT IS NOT PROGRESSING IN HIS CARE PLAN. VITAL SIGNS STABLE WITH NURSE NOT PERCEIVING ANY PAIN OR NAUSEA ON BEHALF OF PATIENT. HE HAS BEEN ORIENTED TO SELF OR SLEEPING OVER SHIFT, AND HAS OPENED EYES AND ATTEMPTED TO TALK TO STAFF. BREATHING STABLE ON LOW LEVEL OXYGEN EVIDENCED BY SPOT OXYGENATION CHECKS. PATIENT WAS MADE NPO EARLY IN SHIFT DUE TO NURSE PERCEIVING POSSIBLE ASPIRATION ON BEHALF OF PATIENT. FREQUENT TURNS WITH BARRIER CREAM APPLICATION TO PROTECT SKIN.
[2019-04-18 07:14] VITALS: BP 165/64
[2019-04-18 11:09] VITALS: BP 133/63
--- NOTE | 2019-04-18 13:08 | NUR ---
SW reviewed chart and spoke with nursing and attending physician. Pt was awake earlier this morning. Pt's family present at bedside. Pt was febrile earlier today. Pt is on IV abx. Awaiting decision from family on LP. [facility] liaison states that pt does not meed admission criteria for LTAC at this time. NARAYAN is following to assist as needed with discharge planning.
[2019-04-18 15:50] VITALS: BP 150/75
--- NOTE | 2019-04-18 16:12 | NUR ---
ASSUMED CARE OF PT AT APPROX 0700. PT IS ALERT AND ORIENTED TO SELF WILL OPEN EYES TO NAME AND TRY TO MUMBLE AT TIMES TOO. AT TIMES HE WILL SAY SIMPLE WORDS MORE CLEAR, SUCH "BYE" AND "YES" WHEN FAMILY IS TRYING TO COMMUNICATE, BUT STILL MOSTLY UNABLE TO UNDERSTAND WHEN PATIENT TRIES TO COMMUNICATE. PT IS MONITORED ON TELE, AND ABLE TO MAINTAIN 02 SAT >90 ON RA. PT WAS TAKEN OF 02 THIS AM AND ABLE TO MAINTAIN 02 SAT SINCE. EVEN NON LABORED BREATHING. ASSESSMENT CHARTED. FAMILY AT BEDSIDE MOST OF DAY AND UDATED ON POC. PT REMAINS ON IV ANTBX AND MAINTENENCE FLUID. SEQUEIRA TO DD. FAMILY DENIES FURTHER QUESTIONS AT THIS TIME. WILL CONTINUE TO MONITOR.
[2019-04-18 19:40] VITALS: BP 141/69
[2019-04-19 04:00] VITALS: BP 130/77
[2019-04-19 05:26] LABS: ALBUMIN 1.4 g/dL (3.4-5.0); CALCIUM 8.4 mg/dL (8.5-10.1); CREATININE 2.5 mg/dL (0.7-1.3); PHOSPHORUS 4.1 mg/dL (2.5-4.9); POTASSIUM 4.5 mmol/L (3.5-5.1)
[2019-04-19 07:33] VITALS: BP 151/77
--- NOTE | 2019-04-19 07:54 | NUR ---
PATIENT IS SLOWLY PROGRESSING IN HIS CARE PLAN. VITAL SIGNS STABLE WITH NURSE NOT PERCEIVING ANY PAIN OR NAUSEA ON BEHALF OF PATIENT. PATIENT REMIANED ORIENTED TO SELF THROUGHOUT SHIFT. BREATHING STABLE ON ROOM AIR EVIDENCED BY SPOT OXYGENATION CHECKS. NPO FOR POTENTIAL ASPIRATION. PATIENT TURNED FREQUENTLY WITH BARRIER APPLIED TO PROTECT SKIN. CONTINUE PLAN OF CARE.
[2019-04-19 11:25] VITALS: BP 174/74
--- NOTE | 2019-04-19 14:31 | NUR ---
SW reviewed chart and spoke with nursing and attending physician. Pt is febrile today. Pt remains on IV abx. Pt may need an LP per neuro. NARAYAN is following to assist as needed with discharge planning.
[2019-04-19 16:34] VITALS: BP 160/68
--- NOTE | 2019-04-19 16:40 | NUR ---
ASSUMED CARE OF PT AT APPROX 0700. PT IS ALERT AND ORIENTED TO SELF. WILL TRACK AND MUMBLE WORDS. PT DOES NOT FOLLOW COMMANS TO SQUEEZE FINGERS, WIGGLE TOES, ETC. MONITORED ON TELE AND ABLE TO MAINTAIN 02 SAT >90 ON RA. STATES NO WHEN ASKED IF PT IS IN PAIN. EVEN NON LABORED BREATHING. SEQUEIRA TO BRENNAN. REMAINS ON IV ATBX AND MAINTENENCE FLUIDS. FAMILY HAS BEEN UPDATED ON POC AND DENY ANY FURTHER QUESTIONS AT THIS TIME. WILL CONTINUE TO MONITOR.
[2019-04-19 19:40] VITALS: BP 168/75
[2019-04-19 23:40] VITALS: BP 135/59
[2019-04-20 04:10] VITALS: BP 124/46
--- NOTE | 2019-04-20 05:31 | NUR ---
PT RESTING IN BED. REMAINS CONFUSED BUT ALERT. MINIMAL WORDS AND NOT FOLLOWING COMMANDS. 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 PT TOLERATING FREQUENT TURNS. PT REMAINS ON RA. PT HAD 2 LOOSE BMS TONIGHT. CONTINUES ON IVF.
[2019-04-20 05:37] LABS: ALBUMIN 1.2 g/dL (3.4-5.0); CALCIUM 8.3 mg/dL (8.5-10.1); CREATININE 2.6 mg/dL (0.7-1.3); PHOSPHORUS 4.4 mg/dL (2.5-4.9); POTASSIUM 4.6 mmol/L (3.5-5.1)
[2019-04-20 07:39] VITALS: BP 1134/69
[2019-04-20 09:54] LABS: HEMATOCRIT 24.3 % (42.0-52.0); HEMOGLOBIN 7.9 gm/dL (14.0-18.0); MCH 30.4 pg (26.0-34.0); MCHC 32.3 g/dL (28.0-37.0); MCV 94.1 fL (80.0-100.0); RBC 2.58 mil/uL (4.50-6.00); RDW 14.3 % (10.5-14.5); WBC 9.4 thou/uL (4.0-11.0)
--- NOTE | 2019-04-20 10:06 | NUR ---
Followup: severe protein calorie malnutrition with extended inadequate intake this admission. Earlier chart documentation notes were that family does not want a feeding tube (PEG). ST working with pt this am, limited intake, still aspiration risk. Question is to continue to offer most conservative diet vs readdress option of feeding tube.
[2019-04-20 11:22] VITALS: BP 157/82
--- NOTE | 2019-04-20 12:25 | NUR ---
NARAYAN reviewed chart. Attending physician discussed peg tube v. dobhoff with pt's dtr, Irais. Will await input from consultants regarding what would be best for pt at this time. [facility] LT has evaluated pt and pt does not meet LTAC admission criteria at this time. However, should pt have dobhoff placed, he may. [facility] is following pt as well. NARAYAN updated pt's dtrs and is following to assist as needed with discharge planning.
[2019-04-20 15:12] VITALS: BP 157/78
--- NOTE | 2019-04-20 18:30 | NUR ---
SHIFT SUMMARY: DR. THEODORE CALLED RN, INFORMING DOBHOFF PLACEMENT CONFIRMED WITH FAMILY. RN RETURNED CALL UPDATING ON HCT/HCT, ORDERS RECEIVED. SPOKE WITH ARMOND TOP FRAME FITTER, THEN SHE CONFIRMED THAT I (AN ICU NURSE) MAY PLACE THE DOBHOFF. DOBHOFF PLACED AT 70 CM WITHOUT DIFFICULTY. PT UNABLE TO SWALLOW WHEN GIVEN THICKENED LIQUID TO ASSIST WITH DOBHOFF PLACEMENT. CHEST XRAY/KUB ORDERED TO CONFIRM PLACEMENT. NEPRO 30CC/HR STARTED PER ORDER. DESPITE HAVING PRAFO BOOTS INTACT, PT WAS ABLE TO SCOOT HIS FEET OUT OF OR TURN THE BOOT AROUND SO THERE IS NO SUPPORT FOR HIS HEEL. HEEL RED/BOGGY IN AM, HEEL RED/PURPLE BOGGY NOW.
[2019-04-20 20:15] VITALS: BP 160/60
--- NOTE | 2019-04-21 05:02 | NUR ---
Assumed care at 0200. Pt resting in bed. AOX1. VSS. Hasnt been combative. Dr Pickett okay with restrains if needed. Dobbholf still in left nare with nepro at 30 cc/hr. Prafo boots in place. Pt is NPO. Turn Q2. 2 loose BMs today. No identified needs at the moment. Bed in lowest position. Will continue to monitor.
[2019-04-21 05:15] VITALS: BP 128/59
[2019-04-21 05:42] LABS: ABSOLUTE NEUTROPHILS 6.5 thou/uL (1.4-8.2); BASOPHILS 0.2 % (0.0-2.0); EOSINOPHILS 1.6 % (0.0-3.0); HEMATOCRIT 25.1 % (42.0-52.0); HEMOGLOBIN 8.2 gm/dL (14.0-18.0); LYMPHOCYTES 6.1 % (24.0-44.0); MCH 30.7 pg (26.0-34.0); MCHC 32.6 g/dL (28.0-37.0); MCV 94.2 fL (80.0-100.0); MONOCYTES 8.8 % (1.0-8.0); PLATELET COUNT 202 thou/uL (150-400); POLYS 83.3 % (36.0-66.0); RBC 2.67 mil/uL (4.50-6.00); RDW 14.2 % (10.5-14.5); WBC 7.8 thou/uL (4.0-11.0)
[2019-04-21 06:06] LABS: ALBUMIN 1.3 g/dL (3.4-5.0); CALCIUM 8.2 mg/dL (8.5-10.1); CREATININE 2.6 mg/dL (0.7-1.3); PHOSPHORUS 4.3 mg/dL (2.5-4.9)
[2019-04-21 07:42] VITALS: BP 140/54
--- NOTE | 2019-04-21 10:16 | NUR ---
DISCHARGE PLANNING. PATIENT REFERRAL FAXED TO [facility]. DONALD TO REVIEW REFERRAL FOR PATIENT DISCHARGE NEEDS. CALL PLACED TO DONALD TO NOTIFY OF REFERRAL. DONALD TO NOTIFY CM ONCE REFERRAL REVIEW HAS BEEN COMPLETED. UNIT CM/SW AWARE. FOLLOWING TO ASSIST.
--- NOTE | 2019-04-21 10:17 | NUR ---
NARAYAN reviewed chart and spoke with nursing and attending physician. Pt had dobhoff place yesterday and has been started on tube feedings. NARAYAN discussed case with [facility] liaison, who will re-evaluate pt for admission to their LTAC. land use planner to fax info to [facility] for review. NARAYAN is following to assist as needed with discharge planning.
[2019-04-21 11:21] VITALS: BP 140/59
--- NOTE | 2019-04-21 13:16 | NUR ---
Nutrition: REC nepro tube feeds goal rate of 45 mL/hr to meet 91-100% of needs. Defer fluid needs
[2019-04-21 16:29] VITALS: BP 154/60
[2019-04-21 19:24] VITALS: BP 143/50
--- NOTE | 2019-04-21 21:55 | NUR ---
PATIENT ALERT AND MUTTERS WORDS BUT DOES NOT FOLLOW COMMANDS. WITH SPEECH AT BEDSIDE ATTEMPTS TO GIVE MEDS WITH APPLESAUCE FAILED. NOTIFIED DR THEODORE AND PHARMACY AND CHANGE MEDS TO IV WHEN POSSIBLE AND CRUSHED IN WATER THROUGH FEEDING TUBE. FAMILY AT BEDSIDE IN AFTERNOON AND CONCERNED ABOUT HIS DECLINE. SPOKE WITH FAMILY REGARDING RESULTS AND NOTES WRITTEN BY PROVIDERS. TUBE FEEDING AT 40ML/HR PER DR. THEODORE. VANCO TROUGH 23 AND HELD VANCO IVPB PER DR. LEMONS.
[2019-04-22 03:17] VITALS: BP 129/38
--- NOTE | 2019-04-22 04:32 | NUR ---
Patient not making progress towards outcome goals. Lethargic, opens eyes to verbal stimuli but unable to follow any commands. Rhthm stable. Vital signs unchanges. Tube feeding infusing. Urine ouput fair. High fall risk, fall precautions in place.
[2019-04-22 05:29] LABS: ABSOLUTE NEUTROPHILS 9.4 thou/uL (1.4-8.2); BASOPHILS 0.1 % (0.0-2.0); HEMATOCRIT 23.6 % (42.0-52.0); HEMOGLOBIN 7.7 gm/dL (14.0-18.0); LYMPHOCYTES 1.9 % (24.0-44.0); MCH 30.5 pg (26.0-34.0); MCHC 32.7 g/dL (28.0-37.0); MCV 93.2 fL (80.0-100.0); MONOCYTES 4.6 % (1.0-8.0); PLATELET COUNT 216 thou/uL (150-400); POLYS 93.4 % (36.0-66.0); RBC 2.53 mil/uL (4.50-6.00); RDW 14.1 % (10.5-14.5); WBC 10.1 thou/uL (4.0-11.0)
[2019-04-22 05:46] LABS: ALBUMIN 1.2 g/dL (3.4-5.0); CALCIUM 8.2 mg/dL (8.5-10.1); CREATININE 2.8 mg/dL (0.7-1.3); PHOSPHORUS 4.2 mg/dL (2.5-4.9)
[2019-04-22 07:31] VITALS: BP 141/49
[2019-04-22 11:37] VITALS: BP 145/53
--- NOTE | 2019-04-22 13:52 | NUR ---
Received awake on bed. With O2 at 2lpm via nasal cannula. Awake, uttering uncomprehensible words. With Feeding tube at Left nostril- on 70cm nneka with ongoing Nephro at 40mls/hr, regular flusings done; meds crushed(verified with pharmacy) and given thru feeding tube. Pt With IV at R FA. Bilateral arms swollen 3+, lower extremities 2+, patient regularly turned. Mouth care regularly done, suctioned phlegm frequently. Heel kept off loaded and with boots on. With lynn in situ- draining minimum-moderate amounts- output measured and recorded accordingly. Pt kept comfortable, visited by relatives today. Pt with vancomycin dose at 9am, saw trough is 23, and checked previous dose at 04/21 was held as per DRs order, called Dr Swift's office to verify if ok to give todays dose-a/w reply, called in again since no reply, Dr. Galan called back past 11am and said ok to give Vancomycin today. Pt seen by Dr Pickett, to verify with Nephro re: fluid input allowed, not to transfuse unless HB is below 7.
[2019-04-22 16:41] VITALS: BP 168/45
[2019-04-22 20:11] VITALS: BP 137/98
[2019-04-23 04:29] LABS: HEMATOCRIT 24.1 % (42.0-52.0); HEMOGLOBIN 7.8 gm/dL (14.0-18.0); MCH 30.4 pg (26.0-34.0); MCHC 32.4 g/dL (28.0-37.0); MCV 93.7 fL (80.0-100.0); RBC 2.57 mil/uL (4.50-6.00); RDW 14.6 % (10.5-14.5)
--- NOTE | 2019-04-23 04:31 | NUR ---
Patient made slow progress, more awake and trying to converse but only make incomprehensible sounds. Vital signs and rhythm stable. Denies pain. Tolerating tube feedings.
[2019-04-23 04:58] LABS: ALBUMIN 1.3 g/dL (3.4-5.0); CALCIUM 8.1 mg/dL (8.5-10.1); CREATININE 2.9 mg/dL (0.7-1.3); PHOSPHORUS 4.3 mg/dL (2.5-4.9); POTASSIUM 4.3 mmol/L (3.5-5.1)
[2019-04-23 05:04] VITALS: BP 134/68
[2019-04-23 07:10] VITALS: BP 135/63
[2019-04-23 11:58] VITALS: BP 131/63
[2019-04-23 16:22] VITALS: BP 136/75
--- NOTE | 2019-04-23 19:35 | NUR ---
PT ALERT AND ORIENTED TIMES TWO. VSS, 98%2L, SEQUEIRA TO DD. TUBE FEEDING PER DOBHOFF AT GOAL OF 40/ML PT TOLERATES WELL. PT C/O NECK PAIN PRN MEDICATION GIVEN WITH SOME RELEIF. PT TURNED FREQUENTLY THIS SHIFT. FAMILY AT BEDSIDE, PT SLOWLY PROGRESSING TOWRADS POC GOALS.
[2019-04-23 20:00] VITALS: BP 132/66
[2019-04-24 04:00] VITALS: BP 144/63
[2019-04-24 04:04] LABS: HEMATOCRIT 23.5 % (42.0-52.0); HEMOGLOBIN 7.7 gm/dL (14.0-18.0); MCH 30.8 pg (26.0-34.0); MCHC 32.9 g/dL (28.0-37.0); MCV 93.7 fL (80.0-100.0); RBC 2.51 mil/uL (4.50-6.00); RDW 14.3 % (10.5-14.5); WBC 12.3 thou/uL (4.0-11.0)
[2019-04-24 04:23] LABS: CALCIUM 8.2 mg/dL (8.5-10.1); CREATININE 2.9 mg/dL (0.7-1.3)
--- NOTE | 2019-04-24 06:48 | NUR ---
Patient making slow progress towards outcome goals. More alert and trying to converse but to weak to follow commands. Vital signs and rhythm stable. Fall precautions in place. Tolerating tube feedings, Fair urine output.
[2019-04-24 07:43] VITALS: BP 154/47
[2019-04-24 11:10] VITALS: BP 137/52
--- NOTE | 2019-04-24 11:36 | NUR ---
Discharge Planning: zenaida sent updates on patient to [facility]/re[facility]re[facility] (per her request).
--- NOTE | 2019-04-24 14:26 | NUR ---
SW reviewed chart and spoke with nursing. Pt has dobhoff in place and is more lethargic today than yesterday. urban planner sent updates to [facility] liaison for review. Awaiting determination if pt will need a peg tube soon or treatment goals. NARAYAN is following to assist as needed with discharge planning.
[2019-04-24 16:22] VITALS: BP 139/48
[2019-04-24 19:35] VITALS: BP 147/56
--- NOTE | 2019-04-24 19:59 | NUR ---
PATIEN CONT TO SLEEP THROUGH THE NIGHT. HE DOES NOT SEEM TO BE IN PAIN. HE HAS BEEN NON VERBAL THROUGH THE DAY. EDEMA NOTED TO BUE. FAMILY HERE TO VISIT. HUA IN PLACE. WILL CONT WITH PLAN OF CARE.
[2019-04-25 03:40] VITALS: BP 137/53
[2019-04-25 04:07] LABS: HEMATOCRIT 21.9 % (42.0-52.0); HEMOGLOBIN 7.2 gm/dL (14.0-18.0); MCH 30.8 pg (26.0-34.0); MCHC 33.1 g/dL (28.0-37.0); MCV 93.3 fL (80.0-100.0); RBC 2.35 mil/uL (4.50-6.00); RDW 14.2 % (10.5-14.5); WBC 11.3 thou/uL (4.0-11.0)
[2019-04-25 04:25] LABS: ALBUMIN 1.2 g/dL (3.4-5.0); CALCIUM 8.6 mg/dL (8.5-10.1); CREATININE 3.1 mg/dL (0.7-1.3); PHOSPHORUS 3.5 mg/dL (2.5-4.9); POTASSIUM 3.6 mmol/L (3.5-5.1)
--- NOTE | 2019-04-25 05:22 | NUR ---
SLEPT MOST OF NOC. DOES OPEN EYES AND WILL SOMETIMES STATES NAME ONLY. WORKING ON GOALS AND PLAN OF CARE FOR NOC. NOT PROGRESSING TOWARDS DISCHARGE GOALS. REMAINS NPO WITH DOBHOFF DOWN FOR TUBE FEEDINGS. TURNED EVERY 2 HOURS FOR COMFORT AND SKIN CARE. UNCOMFORTABLE WHEN MOVED BUT CALMS DOWN QUICKLY PAST REPOSITIONING.
[2019-04-25 07:27] VITALS: BP 130/50
--- NOTE | 2019-04-25 11:53 | NUR ---
ASSUMED CARE OF PT AT 0700. PT IS ORIENTATED TO SELF. WILL OPEN EYES WHEN LOUDLY ADDRESSED AND PHYSICALLY STIMULATED. PT IS NON-VERBAL. PT WAS ABLE TO LIGHTLY SQUEEZE R HAND AND SLIGHTLY MOVE R LEG. NO MOVEMENT NOTED ON LEFT SIDE. PT HAS 2-3+ GENERALIZED EDEMA. DR. THEODORE ROUNDED ON PT AND, WITH PROMPTING FROM FAMILY AT BEDSIDE, ASKED THAT STAFF INQUIRE WITH RENAL TO SEE IF A BLOOD TXF IS ADVISABLE. SPOKE WITH DR. YATES AND EXPRESSED THAT IT WOULD BE OKAY. PT IS NOT MAKING PROGRESS TOWARD DC GOALS AT THIS TIME. WILL CONTINUE TO MONITOR AND ASSESS.
[2019-04-25 13:41] VITALS: BP 135/52
--- NOTE | 2019-04-25 14:11 | HC ---
[facility] [place] [address] [place] [address] CONSULTATION Name: ZENA LAWS Room #: 353-P [facility] IN M.R.#: [id number] Admission: 03/29/19 ������������������ Attend Phys: Ike Solis MD, FAAF Discharge: ������������������ Date of : 36 Report #: [id number] THIS REPORT FOR: //name// CC: Ike Solis DATE OF SERVICE: 04/14/2019 HISTORY OF PRESENT ILLNESS: This is an 83-year-old male patient who was evaluated by me for altered mental status. The patient is not able to provide any reliable history. The patient is confused. I reviewed the records and subsequently talked to the patient's daughter. She indicated that the confusion is new; however, this patient still had some memory deficits before. He lives with his son. He was able to take care of himself during the day, but now, he is completely confused. He had multiple problems. When he came in, he had some temperature. He had renal failure. REVIEW OF SYSTEMS: Indicates that he has a history of hypertension, [place], coronary artery disease, atrial fibrillation. He apparently had a nephrectomy in the past. He had shoulder surgery, cardiac stents. His ejection fraction is low with ischemic cardiomyopathy. This was his relevant 14-point review of systems. PAST MEDICAL HISTORY: Negative for stroke. FAMILY HISTORY: Negative for early age stroke. SOCIAL HISTORY: He does drink alcohol. He has smoked in the past. PHYSICAL EXAMINATION: Is limited. He is alert. When I asked him what month it is, he could not tell me and he could not tell me who the president is, but he knew he was in [facility]. Cranial nerve examination 2-12 was difficult as the patient was not able to cooperate. His neuromuscular examination was even more difficult. He moved his arm, but did not move much his shoulder. He did not move his legs much at all. I tried to do the position sense, I could not because he did not cooperate. Cardiac and respiratory examinations appear noncontributory. Blood pressure is 163/80, respirations 16, pulse is 61 and temperature is 98.4. LABORATORY DATA: The patient's lab has multiple abnormalities. His sodium is 155, which is high. No imaging study of the brain was available. Blood workup does indicate that he has a low B12. IMPRESSION: It would appear this patient has significant encephalopathy. He [address] [address] CONSULTATION Name: ZENA LAWS Room #: 353-P [facility] IN .R.#: [id number] Admission: 03/29/19 ������������������ Attend Phys: Ike Solis MD, FAAF Discharge: ������������������ Date of : 36 Report #: [id number] has multiple metabolic problems, which can cause him encephalopathy. Central nervous system infection or lesions is considered less likely, but cannot be fully excluded. RECOMMENDATIONS: I discussed with the patient in detail, but I do not think this patient understands things. Therefore, I talked to the patient's family and discussed with them. We will get a CAT scan, EEG done. I will repeat his B12 since it was low at one time. We will see what this workup shows. Family tells me that he has a defibrillator and cannot have an MRI, so we will try to do the CAT scan. His sodium is still pretty high and that may be contributing to his problem that can also cause multiple other neurological abnormalities. I will talk to the patient's family and talk to his primary care doctor. ��������������������������������������������� <ELECTRONICALLY SIGNED> ���������������������������������������� By: Rick Salomon MD ��������������������������������������������� 04/25/19 1411 1517 [id number] Rick Salomon MD /nt
--- NOTE | 2019-04-25 14:11 | EEG ---
[facility] [place] [address] [place] [address] ELECTROENCEPHALOGRAM Name: ZENA LAWS Room #: 353-P ADM IN M.R.#: [id number] ������������������ Admission: 03/29/19 ������������������ Attend Phys: Ike Solis MD, [facility] Discharge: ������������������ Date of : 36 Report #: [id number] ����������������������������������������������������������������� [id number] THIS REPORT FOR: //name// CC: Ike Solis DATE OF SERVICE: 04/14/2019 This patient is being evaluated for altered mental status. EEG was done by placing the electrode by standard 10-20 system of electrode placement. Both referential and sequential montages were used for recording. Background activity in this patient's EEG is about 6 Hz and 30 microvolt. It is a poorly formed background activity. Photic stimulation is unremarkable. The patient goes to sleep and that is associated with bilateral slowing and few vertex sharp waves. Multiple triphasic waves present throughout the records. IMPRESSION: Severely abnormal EEG with triphasic waves, which are frontally predominant. That finding is consistent with severe encephalopathy. Epileptiform activity cannot be excluded. Thank you very much for this referral. ���������������������������������������� <ELECTRONICALLY SIGNED> ���������������������������������������� By: Rick Salomon MD ��������������������������������������������� 04/25/19 1411 1411 1536 Rick Salomon MD /nt
--- NOTE | 2019-04-25 14:11 | HC ---
[facility] [address] [place] [address] CONSULTATION Name: ZENA LAWS Maxine Room #: 353-P ADM IN M.R.#: [id number] Admission: 03/29/19 ������������������ Attend Phys: Ike Solis MD, FAAF Discharge: ������������������ Date of : 36 Report #: [id number] THIS REPORT FOR: //name// CC: Ike Solis DATE OF SERVICE: 04/14/2019 INCOMPLETE DICTATION HISTORY OF PRESENT ILLNESS: This is an 83-year-old male patient who was evaluated by me for altered mental status. The patient is pretty confused and . DICTATION ENDS HERE. ��������������������������������������������� <ELECTRONICALLY SIGNED> ���������������������������������������� By: Rick Salomon MD ��������������������������������������������� 04/25/19 1411 1510 [id number] Rick Salomon MD /nt
--- NOTE | 2019-04-25 15:58 | NUR ---
NARAYAN reviewed chart and spoke with nursing. Consult received to have LTAC evaluate pt. NARAYAN discussed with [facility] LTAC liaison. Corporate office at [facility] has approved pt to be admitted. Pt has dobhoff in place. NARAYAN spoke with attending physician via phone to provide update. Will discuss with family plans for dobhoff v. peg tube placement. Pt's dtr, Irais, will be back in town on Wednesday. NARAYAN updated pt's dtrs. NARAYAN is following to assist as needed with discharge planning.
[2019-04-25 16:44] VITALS: BP 129/51
[2019-04-25 19:10] VITALS: BP 121/47
--- NOTE | 2019-04-26 03:57 | NUR ---
Pt. remains non verbal though he moans at times . Repositioned for comfort. Maintaining O2 sat greater than 90%. Afebrile. Tolerating tube feeding per dobhoff with water flushes. Generalized edema , scheduled dose of lasix given IV. Will continue to monitor.
[2019-04-26 04:17] VITALS: BP 129/46
[2019-04-26 05:56] LABS: HEMOGLOBIN 6.6 gm/dL (14.0-18.0); MCH 29.7 pg (26.0-34.0)
[2019-04-26 05:58] LABS: HEMATOCRIT 20.8 % (42.0-52.0); MCHC 31.8 g/dL (28.0-37.0); MCV 93.5 fL (80.0-100.0); RBC 2.22 mil/uL (4.50-6.00); RDW 14.7 % (10.5-14.5); WBC 11.6 thou/uL (4.0-11.0)
[2019-04-26 06:11] LABS: CALCIUM 8.1 mg/dL (8.5-10.1); CREATININE 3.5 mg/dL (0.7-1.3); POTASSIUM 3.8 mmol/L (3.5-5.1)
[2019-04-26 07:23] VITALS: BP 142/57
[2019-04-26 11:15] VITALS: BP 114/42
[2019-04-26 13:20] VITALS: BP 128/45; BP 137/47
--- NOTE | 2019-04-26 13:38 | NUR ---
SW received consult from attending physician. Family meeting will be held on Wednesday AM at 1000 to discuss plan of care and treatment goals. Pt has dobhoff in place. SW updated [facility] liaison and pt's dtrs. NARAYAN is following to assist as needed with discharge planning.
--- NOTE | 2019-04-26 14:28 | NUR ---
PT NON VERBAL, BUT WILL OPEN EYE'S WHEN NAME BEING CALLED. VSS, 99%2L, SEQUEIRA TO DD, TUBE FEEDING PER DOBHOFF. ONE UNIT OF PRBC GIVEN THIS SHIFT. PT TURNED FREQUENTLY. FAMILY AT BEDSIDE. WILL CONTINUE TO MONITOR.
[2019-04-26 15:43] VITALS: BP 132/43
--- NOTE | 2019-04-27 04:49 | NUR ---
Pt. awake upon initial assessment , eyes open and attempting to mouth words. He has been repositioned for comfort , arms elevated with pillows. Tube feeding tolerated well. Kept NPO , oral care done. Stinson had 200 ml urine output this shift. Generalized edema and generalized weakness. Not progressing towards care plan goals.
[2019-04-27 04:55] VITALS: BP 128/53
[2019-04-27 05:20] LABS: HEMATOCRIT 23.4 % (42.0-52.0); HEMOGLOBIN 7.7 gm/dL (14.0-18.0); MCH 30.5 pg (26.0-34.0); MCHC 32.9 g/dL (28.0-37.0); MCV 92.8 fL (80.0-100.0); RBC 2.52 mil/uL (4.50-6.00); RDW 14.6 % (10.5-14.5); WBC 10.3 thou/uL (4.0-11.0)
[2019-04-27 05:31] LABS: ALBUMIN 1.3 g/dL (3.4-5.0); CALCIUM 8.1 mg/dL (8.5-10.1); CREATININE 4.1 mg/dL (0.7-1.3); POTASSIUM 4.1 mmol/L (3.5-5.1); TOTAL BILIRUBIN 0.2 mg/dL (<0.1-1.0); TOTAL PROTEIN 4.9 g/dL (6.4-8.2)
[2019-04-27 07:28] VITALS: BP 137/48
[2019-04-27 11:46] VITALS: BP 116/43
--- NOTE | 2019-04-27 13:09 | NUR ---
SW reviewed chart and spoke with nursing. Pt has dobhoff in place. Pt is not progressing towards goals for discharge. SW updated [facility] liaison. No weekend discharge planned. Family meeting to be held on Wednesday, 04/30 at 1000 with attending physician and pt's four children. Clinical updates to be faxed to [facility] and [facility] tomorrow. SW is following to assist as needed with discharge planning.
[2019-04-27 16:05] VITALS: BP 134/42
--- NOTE | 2019-04-27 17:41 | NUR ---
PT NON VERBAL. ALERT TO SELF. VSS, 98%2L. TUBE FEEDING PER ORDER, SEQUEIRA TO DD. PT DOES NOT SEEM TO BE IN ANY PAIN. PT TURNED FREQUENTLY THIS SHIFT. PT FAMILY MEMBERS AT BEDSIDE. WILL CONTINUE TO MONITOR.
[2019-04-27 20:04] VITALS: BP 138/51
--- NOTE | 2019-04-28 03:18 | NUR ---
Pt. awake at times with eyes open and attempting to answer questions. He has been repositioned for comfort. Afebrile. O2 at 2L/NC , shortness of breath with exertion. Generalized edema , arms elevated with pillows. Tolerating tube feeding per dobhoff. Decrease urine output per lynn. Not progressing towards care plan goals.
--- NOTE | 2019-04-28 04:27 | NUR ---
Pt. has increase urine output this shift as compared to yesterday and weight has gone down from 185.1 lbs. to 178.3 lbs. today.
[2019-04-28 04:35] VITALS: BP 159/56
[2019-04-28 06:58] LABS: HEMOGLOBIN 7.8 gm/dL (14.0-18.0); MCH 30.2 pg (26.0-34.0); MCHC 32.5 g/dL (28.0-37.0); MCV 92.8 fL (80.0-100.0); RBC 2.59 mil/uL (4.50-6.00); RDW 14.4 % (10.5-14.5); WBC 9.2 thou/uL (4.0-11.0)
[2019-04-28 07:21] LABS: ALBUMIN 1.2 g/dL (3.4-5.0); CALCIUM 9.1 mg/dL (8.5-10.1); CREATININE 4.6 mg/dL (0.7-1.3); PHOSPHORUS 4.7 mg/dL (2.5-4.9); POTASSIUM 4.1 mmol/L (3.5-5.1)
[2019-04-28 07:40] VITALS: BP 129/50
[2019-04-28 11:38] VITALS: BP 138/52
--- NOTE | 2019-04-28 11:40 | NUR ---
SW reviewed chart and spoke with nursing and attending physician. Pt's family to meet with attending physician on Wednesday at 1000 to discuss plan of care and treatment goals. event planner to send updates to [facility] today. SW updated [facility] liaison. No weekend discharge planned. NARAYAN is following to assist as needed with discharge planning.
--- NOTE | 2019-04-28 13:16 | NUR ---
care of pt assumed this am @ ~0700. pt npo, receiving nutrition via a dobhoff tube to lt nare w/o concern or issues, free water q 6 hrs. lynn catheter functional and w/o concern, no leak noted. pt opens eyes to verbal request, but otherwise is sleeping. no s/s of pain noted. call from pt's daughter this am for an update. pt's sister at bs today, dr. ríos speaking w/ her regarding her thoughts on the families wishes regarding the pt's code status. dr. nascimento aware of family meeting this wednesday.
[2019-04-28 16:06] VITALS: BP 143/55
[2019-04-28 19:36] VITALS: BP 124/66
[2019-04-29 04:25] VITALS: BP 133/63
--- NOTE | 2019-04-29 05:53 | NUR ---
SLEPT MOST OF SHIFT. WILL AWAKEN AND WILL SAY NAME ONLY. WORKING ON GOALS AND PLAN OF CARE FOR NOC. REPOSITIONED EVERY 2-3 HOURS FOR COMFORT AND SKIN CARE. STATUS UNCHANGED. WORKING ON PLAN OF CARE FOR NOC. NOT PROGRESSING TOWARDS DISCHARGE GOALS SLOWLY. CONTINUE TO ASSES CLOESLY.
[2019-04-29 07:30] VITALS: BP 122/63
[2019-04-29 08:07] LABS: HEMATOCRIT 25.6 % (42.0-52.0); HEMOGLOBIN 8.4 gm/dL (14.0-18.0); MCH 30.6 pg (26.0-34.0); MCV 92.6 fL (80.0-100.0); RBC 2.76 mil/uL (4.50-6.00); RDW 14.3 % (10.5-14.5); WBC 7.9 thou/uL (4.0-11.0)
[2019-04-29 08:19] LABS: ALBUMIN 1.5 g/dL (3.4-5.0); CALCIUM 8.7 mg/dL (8.5-10.1); CREATININE 4.9 mg/dL (0.7-1.3); POTASSIUM 4.2 mmol/L (3.5-5.1); TOTAL BILIRUBIN 0.2 mg/dL (<0.1-1.0); TOTAL PROTEIN 5.9 g/dL (6.4-8.2)
--- NOTE | 2019-04-29 10:49 | NUR ---
Assumed care of pt at 0700. Pt has been in and out of sleep. Orientated to self. Able to verbalize a few non-distinguishable words. Pt is not progressing to POC/DC goals. Daughters at bedside and have indicated family's desire to change resuscitation order from DNI to DNR. Will contact physician for order. Family has indicated their desire to pursue palliative care. Will continue to follow-up with this, monitor and assess.
[2019-04-29 19:40] VITALS: BP 120/61
--- NOTE | 2019-04-30 03:01 | NUR ---
RESTED QUIETLY MOST OF SHIFT. REPOSITIONED EVERY 2-3 HOURS FOR COMFORT. ORAL CARE EVERY 1-2 HOURS NEEDED. APPEARS COMFORTABLE. WILL OPEN EYES AND SOMETIMES STATES NAME. WORKING ON GOALS AND PLAN OF CARE FOR NOC. PATIENT ON PALLATIVE CARE. PROGRESSING TOWARDS END OF LIFE. CONTINUE TO ASSES CLOSELY.
[2019-04-30 04:30] VITALS: BP 133/56
[2019-04-30 07:44] VITALS: BP 135/50
--- NOTE | 2019-04-30 10:48 | NUR ---
ASSUMED CARE OF PT AT 0700. PT IS PERIODICALLY ORIENTATED TO SELF. RESPONDS TO PAIN BY OPENING EYES. NO RESPONSE TO VERBAL STIMULI. [facility] SCORE OF 8. DR. THEODORE ROUNDED AND DC'D O2. Q2H TURNS AND Q2H ORAL CARE PROVIDED FOR COMFORT. CHILDREN AT BEDSIDE. PT IS PROGRESSING TOWARD END OF LIFE. WILL CONTINUE TO MONITOR AND ASSESS.
[2019-04-30 20:00] VITALS: BP 159/63
[2019-05-01 05:50] VITALS: BP 174/61
--- NOTE | 2019-05-01 06:23 | NUR ---
RESTED QUIETLY THIS SHIFT. OPENS EYES AT TIMES TO VERBAL AND PHYSICAL STIMULI. LUNG SOUNDS COURES AND CRACKLES THROUGHOUT. URINE OUTPUT 200CC THIS SHIFT. WORKING ON GOALS AND PLAN OF CARE FOR NOC. PROGRESSING TOWARDS GOALS FOR HOSPICE. DAUGHTER AT BEDSIDE. REASSURED TURNED EVERY 2-3 HOURS FOR COMFORT THROUGHOUT NOC. ORAL CARE EVERY 2-3 HOURS AND ORAL SUCTIONING. MAINTAIN COMFORT LEVEL. CONTINUE TO ASSES CLOSELY.
--- NOTE | 2019-05-01 15:15 | NUR ---
SW reviewed chart and spoke with nursing. Attending physician met with pt's family on Wednesday to discuss plan of care and treatment goals. Pt was made a DNR and started on comfort care measures. Dobhoff removed and pacemaker was deactivated. NARAYAN met with pt's four children to discuss plan of care. Pt's family states pt has had a decline since yesterday. SW discussed options should pt's condition stabilize: d/c to hospice house facility. SW provided options. Pt's family agreeable with plan for pt to discharge if needed. NARAYAN updated pt's nurse. NARAYAN updated [facility] liaison and [facility]. NARAYAN is following to assist as needed with discharge planning.
--- NOTE | 2019-05-01 18:20 | NUR ---
PT AWAKE AND DROWSY AND TIMES AND SLEEPING AT TIMES...MEDICATED WITH MORPHINE 2MG PRN AIR HUNGER PER FAMILY DISCRETION...EMOTIONAL SUPPORT GIVEN TO CHILDREN..
--- NOTE | 2019-05-01 20:08 | NUR ---
GOT REPORT FROM JEREMIAS STEIN AT [facility] PT APPEARED TO BE UNCHANGED FROM HIS BREATHING TODAY. WENT IN TO ASSESS PT AT 193 PT EYES WERE OPEN. I CALLED PT NAME HE DID NOT ACKNOWLEDGE ME IN THE ROOM GOT CLOSER TO PT AT BEDSIDE AND PT TOOK A DEEP BREATH IN AND LET IT OUT THEN PASSED. HAD REGI STEIN COME IN TO ASSESS PT STATUS WITH ME AND WE BOTH VERIFIED BY AUSCULTATION THAT PT HAD PASSED AT 1939. CALL PLACED TO DECKHAND TUNA BOAT AT 1941. CALLED PLACED TO DAUGHTER MICHAELLE AT 1942 AND NOTIFIED HER OF HER FATHER PASSING. SHE SAID THAT SHE WOULD CALL HER SIBLINGS AND THEY WOULD COME UP HERE. CALL PLACED TO MTN AT 1944. LAST CALL PLACED TO DR. THEODORE AT 1949 AND NOTIFIED HIM OF PT PASSING. HE ASKED IF [facility] AND I SAID YES. WILL FILL OUT ADDITIONAL INFORMATION FOR SUMMARY WORKSHEET AND GET HOME INFO ONCE PT FAMILY IS HERE.
--- NOTE | 2019-05-01 20:47 | NUR ---
FAMILY BEGAN ARRIVING AT 2019 AND ALL SIBLINGS ARE SURROUNDING THEIR FATHER AT BEDSIDE CURRENTLY. SPOKE TO HOME REP FOR DANGLE & SON (SP?) HOME AT 2034 AND PROVIDED INFORMATION THEY NEEDED. REP MADE A NOTE THAT FAMILY WOULD LIKE SOME TIME AT BEDSIDE AND THEN I WILL CALL HOME BACK WHEN THEY ARE READY TO LEAVE AND PT TO BE PICKED UP.
--- NOTE | 2019-05-01 21:37 | NUR ---
[id number] FAMILY JUST LEFT PT WITH ALL OF PT BELONGINGS EXCEPT HIS PARTIAL LOWER DENTURES. WILL CALL MARTÍN FROM HOME TO NOTIFY HIM TO HEAD THIS WAY.
--- NOTE | 2019-05-01 22:01 | NUR ---
PT SEQUEIRA CATHETER REMOVED WITH 10ML OF WATER DEFLATED FROM BALLOON.
--- NOTE | 2019-05-01 22:05 | NUR ---
PT PREPPED. SECURITY HAS BEEN UP TO GET PAPERWORK. HOME ON THE WAY.
--- NOTE | 2019-05-01 22:16 | NUR ---
PT OFF UNIT WITH PERSONEL AND SECURITY ESCORTING HIM. ROOM IS NOW EMPTY.
--- NOTE | 2019-05-03 07:14 | D ---
[facility] [place] [address] DISCHARGE SUMMARY Name: ZENA LAWS Room #: 353-P [facility] IN M.R.#: [id number] Admission: 03/29/19 ������������������ Attend Phys: Ike Solis MD, FAAF Discharge: 05/01/19 ������������������ Date of : 37 Report #: [id number] THIS REPORT FOR: //name// CC: Lizandro De Jesus MD [facility] Colin Mora MD DATE OF SERVICE: 05/02/2019 HOSPITAL COURSE: This 83-year-old white male who was admitted through the Emergency Room with a temperature of 102 and sepsis, believed secondary to aspiration pneumonia. Prior to admission he was living at home with his son, able to ambulate and in fairly alert status prior to becoming ill. 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 HOSPITAL COURSE AND HISTORY AND PHYSICAL: GENERAL: Revealed febrile, septic, white male. ABDOMEN: Soft and nontender. HEAD AND NECK: Essentially negative. LUNGS: Initially were clear. EXTREMITIES: Had some edema, stasis dermatitis in his legs. NEUROLOGIC: Revealed no lateralizing, neurologic deficit. Initial sodium 131, potassium 4.2, CO2 24, BUN 54, creatinine 2.0, blood sugar 91, lactate 1.3. Liver enzymes revealed elevated SGOT of 41, SGPT 58, bilirubin normal. Troponin negative, 6-15 white cells in his urine. Urine culture and blood cultures were negative. The patient developed worsening renal insufficiency, hypoxia and aspiration was noted. He was seen in consult by Dr. Swift, ID; Dr. Mora of Nephrology; Dr. De Jesus of Cardiology; Dr. Chacon of Orthopedics because of swollen, tender hands; and Dr. Salomon of Neurology. The patient developed significant encephalopathy with poor responsiveness and worsening hypoxia. Chest x-ray showed bilateral aspiration pneumonia and pulmonary edema. Review of echocardiogram revealed his LVEF was only 25% with global hypokinesis. He was unable to eat because of aspiration. Kidney function worsened. A Dobbhoff tube was inserted after family conference and he received tube feedings with Nepro which he tolerated well; however, neurologically he never recovered. He became unable to handle his secretions or to cough. He had told his children that he would never want to be kept alive on life support machinery. Multiple lab studies were obtained. The patient was extremely uncomfortable when his arms or legs were moved, I believe secondary to his arthritis. Fentanyl was placed at family's request and the [facility] [address] [place] [address] DISCHARGE SUMMARY Name: ZENA LAWS Room #: 353-P DIS IN M.R.#: [id number] Admission: 03/29/19 ������������������ Attend Phys: Ike Solis MD, FAAF Discharge: 05/01/19 ������������������ Date of : 36 Report #: [id number] patient did seem more comfortable. He progressively deteriorated, became more congested in the chest and was unable to clear secretions. His final hemoglobin was 8.4, white count 7900. Sodium 139, potassium 4.2, CO2 22, BUN 134, creatinine up to 4.9, estimated GFR 11. Blood sugar 141, albumin low at 1.5. Thyroid function normal. BNP elevated at 26,800. Iron saturation low at 4%. Magnesium high at 2.7. After several discussions with the consultants and with the patient's 4 children, the family elected to stop all aggressive measures and go for comfort care and hospice support. The patient remained breathing comfortably and on 05/01/2019 at 1940 the patient stopped breathing and . The patient's family were not present at that time, but were notified and were able to return before he was transferred to the home. FINAL DIAGNOSES: 1. Sepsis secondary to bilateral aspiration pneumonia. 2. Mfxoo-yj-rxjzhhq systolic heart failure. 3. Acute kidney injury. 4. Chronic kidney disease stage 3. 5. Severe degenerative and gouty arthritis. 6. Metabolic encephalopathy. 7. Severe protein-calorie malnutrition. 8. Iron-deficiency anemia. 9. Ischemic cardiomyopathy with previous ICD placement ��������������������������������������������� <ELECTRONICALLY SIGNED> ���������������������������������������� By: Arturo Pickett DO ��������������������������������������������� 05/03/19 0714 [id number] Arturo Pickett DO /nt
== END 2019-05-01 22:18 | DRG 871 ==
LOC: ER 23:52 → 4E 03-29 02:58 → 3W 03-29 02:58 → EROBS 03-29 02:58 → 4E 03-29 04:14 → 3W 04-03 20:00
PROVIDERS: Hospitalist; Internal Medicine; Internal Medicine Nephrology; Orthopaedic Surgery; Specialist; Student in an Organized Health Care Education/Training Program; ADMIT Family Medicine
PROC: 4B02XTZ Measurement of Cardiac Defibrillator, External Approach (ICD-10-PCS; 2019-03-30)
PROC: 30233N1 Transfusion of Nonautologous Red Blood Cells into Peripheral Vein, Percutaneous Approach (ICD-10-PCS; principal; 2019-04-26)
DX: A41.9 Sepsis, unspecified organism (principal); J69.0 Pneumonitis due to inhalation of food and vomit; G92 Toxic encephalopathy; E43 Unspecified severe protein-calorie malnutrition; I50.43 Acute on chronic combined systolic (congestive) and diastolic (congestive) heart failure; N39.0 Urinary tract infection, site not specified; I13.0 Hypertensive heart and chronic kidney disease with heart failure and stage 1 through stage 4 chronic kidney disease, or unspecified chronic kidney disease; N17.9 Acute kidney failure, unspecified; Q60.0 Renal agenesis, unilateral; E87.1 Hypo-osmolality and hyponatremia; E87.0 Hyperosmolality and hypernatremia; I47.2 Ventricular tachycardia; G62.81 Critical illness polyneuropathy; E78.5 Hyperlipidemia, unspecified; I25.10 Atherosclerotic heart disease of native coronary artery without angina pectoris; I48.91 Unspecified atrial fibrillation; K21.9 Gastro-esophageal reflux disease without esophagitis; I25.5 Ischemic cardiomyopathy; Z96.641 Presence of right artificial hip joint; M10.9 Gout, unspecified; Z96.652 Presence of left artificial knee joint; K52.9 Noninfective gastroenteritis and colitis, unspecified; I73.9 Peripheral vascular disease, unspecified; I44.7 Left bundle-branch block, unspecified; N18.3 Chronic kidney disease, stage 3 (moderate); D50.9 Iron deficiency anemia, unspecified; I87.2 Venous insufficiency (chronic) (peripheral); E83.42 Hypomagnesemia; M25.462 Effusion, left knee; M13.0 Polyarthritis, unspecified; M65.842 Other synovitis and tenosynovitis, left hand; M65.841 Other synovitis and tenosynovitis, right hand; M25.421 Effusion, right elbow; R13.12 Dysphagia, oropharyngeal phase; I25.2 Old myocardial infarction; Z90.5 Acquired absence of kidney; Z95.1 Presence of aortocoronary bypass graft; Z95.5 Presence of coronary angioplasty implant and graft; Z79.899 Other long term (current) drug therapy; Z79.82 Long term (current) use of aspirin; Z95.810 Presence of automatic (implantable) cardiac defibrillator; Z68.29 Body mass index [BMI] 29.0-29.9, adult
CPT/HCPCS: 10080; 10084; 10879